=== PATIENT | male | born 1985 | race Caucasian/White ===

== ENCOUNTER 2022-12-21 07:46 | Inpatient (IN) | payer OTHER, MEDICAID, SELFPAY ==
[2022-12-21 07:56] VITALS: BP 129/89; PULSE 118; RESP 26; O2SAT 98; BMI 21.7
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
[2022-12-21] MEDS: diphenhydrAMINE 50 mg/mL SDV 1mL IVP (08:48)
[2022-12-21] MEDS: haloperidol inj 5 mg/mL INJ 1 mL IM (08:48)
[2022-12-21] MEDS: LORazepam 2 mg/mL INJ 1 mL IM (08:49)
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
--- NOTE | 2022-12-21 09:30 | PC.NURSE ---
Pt was sleeping and his O2 dropped to 88% so i placed him on 3lpm NC and it went up to 96%
[2022-12-21 09:34] VITALS: BP 128/74; RESP 18; O2SAT 95
--- NOTE | 2022-12-21 09:43 | PC.NURSE ---
Patient read his 96 Hr rights @5324. No questions at this time. Patient copy left at bedside.
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
[2022-12-21 09:50] LABS: Basophils % 0.4 %; Hemoglobin 12.3 g/dL (11.7-16.6); Mean Corpuscular HGB Conc 32.4 g/dL (30.0-36.0); Mean Corpuscular Hemoglobin 29.7 pg (28.0-34.0); Mean Corpuscular Volume 91.8 fl (80-94); Mean Platelet Volume 8.5 fL (7.4-10.4); Monocytes # 0.7 10^3/uL (0.2-0.9); Monocytes % 8.4 %; Neutrophils # 6.38 10^3/uL (1.8-7.7); Neutrophils % 78.8 %; Nucleated Red Blood Cells % 0 %; Platelet Count 370 10^3/cmm (130-400); Red Blood Count 4.14 10^6/uL (4.1-5.3); Red Cell Distribution Width 12.2 % (12.1-15.1); White Blood Count 8.1 10^3/uL (4.0-10.0)
--- NOTE | 2022-12-21 10:06 | PC.PHAR ---
pt is from [facility]-medications entered are from the pts mar from [facility]-ext med history shows clonazepam 0.5mg bid prn filled 11/16/22 30d/s and propranolol 10mg bid filled 11/16/22 30d/s those medications were not on the pts med list from [facility]
[2022-12-21 10:09] LABS: Alanine Aminotransferase 14 U/L (0-41); Albumin Level 4.4 g/dL (3.5-5.2); Alkaline Phosphatase 77 U/L (40-130); Anion Gap 15.5 (5-19); Aspartate Amino Transferase 25 U/L (0-40); Blood Urea Nitrogen 9 mg/dL (6-20); Calcium 9.4 mg/dL (8.5-10.5); Carbon Dioxide 25 mmol/L (22-29); Chloride 102 mmol/L (98-107); Globulin 2.5 g/dL (1.3-4.6); Glomerular Filtration Rate 94.4 mL/min (90-130); Glucose 108 mg/dL (65-115); Osmolality Calculated 287 mOsm/kg (285-295); Potassium 3.5 mmol/L (3.5-5.1); Sodium 139 mmol/L (136-145); Total Bilirubin 0.3 mg/dL (0.15-1.2); Total Protein 6.9 g/dL (6.6-8.7)
[2022-12-21 10:12] LABS: Acetaminophen < 5.0 ug/mL (10-30); Alcohol Level < 10 mg/dL (0-10); Salicylate < 0.3 mg/dL (3-10)
--- NOTE | 2022-12-21 12:03 | ECG_ITS ---
[facility] Test Date: 2022-12-21 Pat Name: Sajan Overton Department: Room: Gender: Male Photocopier Technician: : 1985 Requested By: Jackeline Buchanan Order Number: [id number] Shelley MD: Wally Gipson M.D. Measurements Intervals Yolyn Rate: 106 P: 66 UT: 165 QRS: 242 QRSD: 106 T: 50 QT: 360 QTc: 480 Interpretive Statements SINUS TACHYCARDIA INDETERMINATE AXIS No previous ECG available for comparison Electronically Signed On 12-21-2022 18:12:19 R DEVELOPER by Wally Gipson M.D. [id number]
--- NOTE | 2022-12-21 12:15 | PC.NURSE ---
Tried to talk to the pt about being able to come out of the restraints, pt refused to talk with me, he just looked around.
[2022-12-21 12:17] LABS: Thyroid Stimulating Hormone 1.88 uIU/mL (0.27-4.20)
[2022-12-21 12:38] LABS: Amphetamines Screen Urine Negative (Negative); Barbiturates Screen Urine Negative (Negative); Benzodiazepines Screen Urine Negative (Negative); Cocaine Screen Urine Negative (Negative); Opiate Screen Urine Negative (Negative); PCP Screen Urine Negative (Negative); THC Screen Urine Negative (Negative)
--- NOTE | 2022-12-21 12:52 | PC.NURSE ---
I spoke with the pt and he states he feels better now and will not cause any trouble, i spoke with and i release pts left arm from the restraint
[2022-12-21 13:01] LABS: SARS Covid-2 Antigen negative (Negative)
--- NOTE | 2022-12-21 13:03 | PC.NURSE ---
Pt removed his right arm on his own, i talked to him told him i would remove them and that he needs to leave them on
--- NOTE | 2022-12-21 13:23 | PC.NURSE ---
pt was removed from all restraints
[2022-12-21 14:00] VITALS: BP 146/92; PULSE 107; RESP 18; TEMP 36.7; O2SAT 96
[2022-12-21 14:11] LABS: Influenza A by IFA Negative (Negative)
[2022-12-21 14:12] LABS: Influenza B by IFA Negative (Negative)
[2022-12-21 14:29] LABS: Add Urine Microscopic? NO; Charge for UA Resulting for Rev
[2022-12-21 14:38] LABS: Bilirubin Urine Neg (Negative); Blood Urine Neg (Negative); Glucose Urine UA Norm (Normal); Ketones Urine Negative (Negative); Leukocyte Esterase Urine Negative (Negative); Nitrate Urine Negative (Negative); Protein Urine Neg (Negative); Sulfosalicylic Acid Urine Negative (Negative); Urine Appearance Clear (CLEAR); Urine Color Light yellow (Yellow); Urobilinogen Urine Neg (Negative); pH Urine 8 (5-7)
[2022-12-21 15:49] VITALS: BP 132/71; PULSE 92; RESP 18; O2SAT 96
[2022-12-21 16:32] VITALS: RESP 18
[2022-12-21] MEDS: nicotine 2 mg Gum BUCCAL (16:44)
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
[2022-12-21] MEDS: ARIPiprazole 10 mg Tablet PO (21:51)
[2022-12-21] MEDS: amitriptyline 25 mg Tablet 100 MG PO (21:51)
[2022-12-21 22:00] VITALS: BP 110/76; PULSE 104; RESP 17; TEMP 36.6; O2SAT 97
[2022-12-21] MEDS: trazodone 50 mg Tablet PO (23:24)
[2022-12-22] MEDS: OLANZapine 5 mg ODT PO (05:43)
[2022-12-22 06:00] VITALS: BP 114/83; PULSE 110; RESP 18; TEMP 37; O2SAT 93
[2022-12-22] MEDS: nicotine 2 mg Gum BUCCAL ×2 (06:07→18:35)
[2022-12-22] MEDS: naltrexone hcl 50 mg Tablet PO (06:08)
[2022-12-22] MEDS: PARoxetine 20 mg Tablet 40 MG PO (06:08)
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
[2022-12-22] MEDS: cetylpyridinium Lozenge 1 EACH MUCOUS MEM ×3 (11:38→21:32)
[2022-12-22 14:00] VITALS: BP 95/64; PULSE 89; RESP 18; TEMP 36.9; O2SAT 98
[2022-12-22] MEDS: hyDROXYzine 25 mg Capsule 50 MG PO (16:52)
[2022-12-22 20:42] VITALS: BP 101/60; PULSE 87; RESP 18; TEMP 36.6; O2SAT 96
[2022-12-22] MEDS: amitriptyline 25 mg Tablet 100 MG PO (21:31)
[2022-12-22] MEDS: trazodone 50 mg Tablet PO (21:32)
[2022-12-22] MEDS: ARIPiprazole 10 mg Tablet PO (21:32)
[2022-12-23] MEDS: acetaminophen 325 mg Tablet 650 MG PO (00:34)
[2022-12-23] MEDS: OLANZapine 5 mg ODT PO (00:35)
[2022-12-23 06:00] VITALS: RESP 16
[2022-12-23] MEDS: naltrexone hcl 50 mg Tablet PO (08:51)
[2022-12-23] MEDS: nicotine 2 mg Gum BUCCAL ×2 (08:51→21:26)
[2022-12-23] MEDS: PARoxetine 20 mg Tablet 40 MG PO (08:51)
[2022-12-23] MEDS: cetylpyridinium Lozenge 1 EACH MUCOUS MEM (08:51)
--- NOTE | 2022-12-23 10:15 | W.PM.NPUPNS ---
Subjective NPU Subjective: Patient presented today reporting that he is tolerating the changes in his Abilify. He is having some confusion about what he is actually taking but we explained that he is on 15 mg p.o. nightly with a possible consideration of increasing that to 20. We continued to discuss his situation at [facility] and it appears that the thought of going back at this at this moment causes some anxiety. We agreed to work on him getting better first and then see where things are from a standpoint of returning to treatment. But we both agreed that continuing his sober living treatment will be critical for his overall success. Mental Status Exam MSE Comments: This is a slender white male in hospital scrubs with limited grooming and eye contact. No abnormal movements except for mild psychomotor retardation. Cooperative with exam in mild distress. Speech was normal rate and volume but slightly decreased. Mood described as okay but anxious at times, affect is congruent and slightly subdued. Thought process, organized. Thought content: patient denies suicidal or homicidal ideation, no delusions noted or reported currently and denies auditory or visual hallucinations. Attention and concentration are intact and memory appeared reliable but none were formally tested. He is alert and oriented times three. Insight and judgment are limited. Impulse control is limited. Vitals/I&O/Wt Last Vital Signs Temp 97.9 F 12/22/22 20:42 Pulse 87 12/22/22 20:42 Resp 16 12/23/22 06:00 BP 101/60 12/22/22 20:42 Pulse Ox 96 12/22/22 20:42 O2 Del Method 12/22/22 06:00 O2 Flow Rate 0 12/23/22 08:00 Data NPU 12/21/22 09:43 12/21/22 09:43 A&P Assessment and plan (1) Aggressive behavior: (2) Psychosis: (3) Involuntary commitment: Plan This is a 37 year old white man with a history of trauma, symtoms of anxiety and depression, methamphetamine and opiate use and genetic loading for mental health and addiction issues who presents with recent confused thought process reporting psychosis/hallucinations/paranoia. 1. Continue current medications. Increased Abilify to 15 mg p.o nightly. 2. Encourage individual, group and milieu therapy 3. Continue q-15 minute check for safety 4. Recommend sober living treatment at the highest level of care to which the patient is willing to commit. Involuntary Hold Information 96 Hour Hold: 96 Hour Involuntary Admission: Yes 96 Hour Hold Ending Date: 12/27/22 96 Hour Hold Ending Time: 08:30 Attestations NPU Medical Necessity Statement*: Inpatient hospitalization is medically necessary and the clinically appropriate intervention at this time. We will monitor medications and make changes as indicated. Likely length of stay is three to five days. Coding Level of Care Code Acute Code for Chg Fwd Diagnoses Aggressive behavior R46.89 Psychosis F29 Involuntary commitment Z04.6
[2022-12-23] MEDS: ARIPiprazole 10 mg Tablet 5 MG PO (11:15)
[2022-12-23 14:00] VITALS: BP 111/78; PULSE 92; RESP 18; TEMP 36.6; O2SAT 96
[2022-12-23] MEDS: haloperidol 5 mg Tablet PO (16:23)
[2022-12-23] MEDS: hyDROXYzine 25 mg Capsule 50 MG PO (16:23)
[2022-12-23] MEDS: haloperidol inj 5 mg/mL INJ 1 mL IM (16:41)
[2022-12-23] MEDS: diphenhydrAMINE 50 mg/mL SDV 1mL IM (16:42)
[2022-12-23] MEDS: LORazepam 2 mg/mL INJ 1 mL IM (16:43)
--- NOTE | 2022-12-23 16:44 | PC.NURSE ---
PATIENT BEGAN WANDERING AND LOOKING INTO OTHER PATIENT'S ROOM APPEARS VERY ANXIOUS; THIS NURSE REDIRECTED PT. SEVERAL TIMES ALONG WITH ASAEL THOMAS. PATIENT CONT. TO BECOME MORE AGITATED; AND PHYSICALLY THREATEN TOWARDS STAFF AND PEERS. PT ALSO BEGAN TRYING TO [facility], PUSHING ON DOORS. SECURITY CALLED AND KARYN Sanon RESPONDED AND WAS A STANDBY WITH NURSE FELICIANO, AND ASAEL THOMAS, NURSE ADMINISTERED PRN HALDOL 5MG IM AND ATIVAN 2MG IM INTO LT. DELTOID;BENADRYL 50MG INTO RT. DELTOID.
[2022-12-23] MEDS: amitriptyline 25 mg Tablet 100 MG PO (20:03)
[2022-12-23] MEDS: ARIPiprazole 10 mg Tablet 15 MG PO (20:03)
[2022-12-23 21:05] VITALS: BP 100/62; PULSE 85; RESP 20; TEMP 36.6; O2SAT 94
[2022-12-24] MEDS: nicotine 2 mg Gum BUCCAL (01:49)
[2022-12-24 05:56] VITALS: BP 101/68; PULSE 108; TEMP 36.4; O2SAT 97
[2022-12-24] MEDS: OLANZapine 5 mg ODT PO ×3 (08:21→21:50)
[2022-12-24] MEDS: naltrexone hcl 50 mg Tablet PO (08:21)
[2022-12-24] MEDS: PARoxetine 20 mg Tablet 40 MG PO (08:21)
--- NOTE | 2022-12-24 13:49 | PC.NURSE ---
Pt came to nurses station with robert yee on his face. He moved back to the smoke doors by room 131, then came fdc to the desk, then back to between the doors. He then came forward to the desk and reached his hand out and touched the counter, then walked backwards to between the smoke doors. He repeated this process at least three more times, then picked up a flexible pen that was on the counter and walked back to his room. He was later in the day room eating his meal. Pt in his room. When staff talked with pt he had a flight of ideas. Pt medicated with zyprexa.
[2022-12-24 14:00] VITALS: BP 134/82; PULSE 102; RESP 18; TEMP 36.6; O2SAT 98
[2022-12-24] MEDS: cetylpyridinium Lozenge 1 EACH MUCOUS MEM (14:10)
--- NOTE | 2022-12-24 14:37 | W.PM.NPUPNS ---
Subjective NPU Subjective: Patient presented today reporting that he had a significant panic attack this morning. He reports he was given medication by the staff/nursing and that after about half an hour he feels things subsided. He does not have any idea why this happened. He denies any issues with the Abilify and was reporting that his psychotic symptoms were abating. Mental Status Exam MSE Comments: This is a slender white male in hospital scrubs with limited grooming and eye contact. No abnormal movements except for mild psychomotor retardation. Cooperative with exam in mild distress. Speech was normal rate and volume but slightly decreased. Mood described as better than earlier, affect is congruent and slightly subdued. Thought process, organized. Thought content: patient denies suicidal or homicidal ideation, no delusions noted or reported currently and denies auditory or visual hallucinations. Attention and concentration are intact and memory appeared reliable but none were formally tested. He is alert and oriented times three. Insight and judgment are limited. Impulse control is limited. Vitals/I&O/Wt Last Vital Signs Temp 97.8 F 12/24/22 14:00 Pulse 125 H 12/24/22 19:44 Resp 18 12/24/22 19:44 BP 141/94 12/24/22 19:44 Pulse Ox 98 12/24/22 19:44 O2 Del Method 12/24/22 05:56 O2 Flow Rate 0 12/24/22 20:00 Weight last 48 hrs Weight 75.807 kg Data NPU 12/21/22 09:43 12/21/22 09:43 A&P Assessment and plan (1) Aggressive behavior: (2) Psychosis: (3) Involuntary commitment: Plan This is a 37 year old white man with a history of trauma, symtoms of anxiety and depression, methamphetamine and opiate use and genetic loading for mental health and addiction issues who presents with recent confused thought process reporting psychosis/hallucinations/paranoia. 1. Continue current medications. Increased Abilify to 15 mg p.o nightly. Consider increase to 20 mg. 2. Encourage individual, group and milieu therapy 3. Continue q-15 minute check for safety 4. Recommend sober living treatment at the highest level of care to which the patient is willing to commit. Involuntary Hold Information 96 Hour Hold: 96 Hour Involuntary Admission: Yes 96 Hour Hold Ending Date: 12/27/22 96 Hour Hold Ending Time: 08:30 Attestations NPU Medical Necessity Statement*: Inpatient hospitalization is medically necessary and the clinically appropriate intervention at this time. We will monitor medications and make changes as indicated. Likely length of stay is three to five days. Coding Level of Care Code Acute Code for Chg Fwd Diagnoses Aggressive behavior R46.89 Psychosis F29 Involuntary commitment Z04.6
[2022-12-24] MEDS: hyDROXYzine 25 mg Capsule 50 MG PO (15:53)
--- NOTE | 2022-12-24 16:01 | PC.NURSE ---
Pt anxious; complaining he has a rash on his hands. Hands are red and raw looking. Pt admits to washing his hands frequently. Pt encouraged to limit this to when it is necessary. Pt acknowledged this. Hand lotion provided. Pt medicated with Vistaril for anxiety.
[2022-12-24 19:44] VITALS: BP 141/94; PULSE 125; RESP 18; O2SAT 98
[2022-12-24] MEDS: ARIPiprazole 10 mg Tablet 15 MG PO (20:32)
[2022-12-24] MEDS: amitriptyline 25 mg Tablet 100 MG PO (20:35)
[2022-12-24] MEDS: trazodone 50 mg Tablet PO (20:58)
--- NOTE | 2022-12-24 21:00 | PC.NURSE ---
PRN trazodone given to promote sleep. Patient cooperative with administration. Continues to be paranoid. Staring at cameras and objects on sweet. Whispers when speaking at times.
--- NOTE | 2022-12-24 21:50 | PC.NURSE ---
Patient continues to make bizarre statements. Stated I'm invoking my 5th amendment rights. Patient went to camera and lights on sweet and stated the same phrase into the objects. Patient then went to mirror in gould at nurse's station and continued to stare into it making bizarre statements. Patient noted to be blocking when staff asked questions. Patient wandered up and down gould and pausing at different times looking blankly. Patient stated loudly several times to different objects that he did not want followed. PRN phillipyprexprakash po offered and taken at that time. Reoriented patient and suggested he go to dayrooom and relax.
--- NOTE | 2022-12-25 03:49 | PC.NURSE ---
Patient has been resting quietly during night. Did get up one time for a snack. No further bizarre behavior noted after zyprexa.
[2022-12-25 06:00] VITALS: BP 138/98; PULSE 112; RESP 18; O2SAT 95
[2022-12-25] MEDS: PARoxetine 20 mg Tablet 40 MG PO (08:56)
[2022-12-25] MEDS: naltrexone hcl 50 mg Tablet PO (08:56)
[2022-12-25] MEDS: hyDROXYzine 25 mg Capsule 50 MG PO (08:57)
--- NOTE | 2022-12-25 09:34 | PC.NURSE ---
when asking patient is he seeing or hearing anything pt squatted down, placing hands over head, mumbling to himself. pt stated having anxiety, pt continues to walk up and down hallway talking to himself, administered vistaril for anxiety.
--- NOTE | 2022-12-25 11:50 | P.NPUPN_ITS ---
Subjective NPU Subjective: Presented today endorsing significant anxiety. He did have a moment where he got fairly upset reporting that the FBI were coming and reporting that he had to protect himself from them. He did later apologize and say that that would not happen again but clearly was distraught in the moment. We discussed the possibility of increasing his Abilify. Mental Status Exam MSE Comments: This is a slender white male in hospital scrubs with limited grooming and eye contact. No abnormal movements except for mild psychomotor retardation. Cooperative with exam in mild to extreme distress. Speech was norm al rate and volume but slightly decreased. Mood described as anxious, affect is congruent and slightly subdued. Thought process, organized. Thought content: patient denies suicidal or homicidal ideation, no delusions reported but clear paranoid and persecutory delusions noted and he denies auditory or visual hallucinations. Attention and concentration are intact and memory appeared reliable but none were formally tested. He is alert and oriented times three. Insight and judgment are limited. Impulse control is impaired. Vitals/I&O/Wt Last Vital Signs Temp 97.8 F 12/24/22 14:00 Pulse 112 H 12/25/22 06:00 Resp 18 12/25/22 06:00 BP 138/98 12/25/22 06:00 Pulse Ox 95 12/25/22 06:00 O2 Del Method 12/24/22 05:56 O2 Flow Rate 0 12/24/22 20:00 12/24/22 12/25/22 12/25/22 22:59 06:59 14:59 Intake Total 500 / 500 Balance 500 / 500 Weight last 48 hrs Weight 75.807 kg Data NPU 12/21/22 09:43 12/21/22 09:43 A&P Assessment and plan (1) Aggressive behavior: (2) Psychosis: (3) Involuntary commitment: Plan This is a 37 year old white man with a history of trauma, symtoms of anxiety and depression, methamphetamine and opiate use and genetic loading for mental health and addiction issues who presents with recent confused thought process reporting psychosis/hallucinations/paranoia. 1. Continue current medications. Increased Abilify to 15 mg p.o nightly. Increase to 20 mg. 2. Encourage individual, group and milieu therapy 3. Continue q-15 minute check for safety 4. Recommend sober living treatment at the highest level of care to which the patient is willing to commit. Involuntary Hold Information 96 Hour Hold: 96 Hour Involuntary Admission: Yes 96 Hour Hold Ending Date: 12/27/22 96 Hour Hold Ending Time: 08:30 Attestations NPU Medical Necessity Statement*: Inpatient hospitalization is medically necessary and the clinically appropriate intervention at this time. We will monitor medications and make changes as indicated. Likely length of stay is three to five days. Coding Level of Care Code Acute Code for g Fwd Diagnoses Aggressive behavior R46.89 Psychosis F29 Involuntary commitment Z04.6
[2022-12-25 14:00] VITALS: BP 94/67; PULSE 104; RESP 16; TEMP 36.6; O2SAT 96
[2022-12-25] MEDS: amitriptyline 25 mg Tablet 100 MG PO (20:02)
[2022-12-25] MEDS: ARIPiprazole 10 mg Tablet 20 MG PO (20:02)
[2022-12-25 21:07] VITALS: BP 114/81; PULSE 104; RESP 18; TEMP 36.8; O2SAT 95
[2022-12-26] MEDS: OLANZapine 5 mg ODT PO ×2 (02:08→20:25)
--- NOTE | 2022-12-26 02:13 | PC.NURSE ---
Patient has been up to nurse's station several times in the past few minutes. Requested to take a shower. Hygiene box, towels and fresh clothes given to patient. Patient returned to nurse's station and made several bizarre statements. Stated I see you all are lip syncing in there. Asked patient what he meant by that and he said I don't know, the world is different. Asked patient if he needed any assistance with anything. Patient stated I can sign that form that was pre-dated now. Told patient I didn't know what form he was talking about and he stated That one where I get treatment to help me to the other side. Patient appears paranoid and will stop talking abruptly or whisper when talking with staff. Patient looking up and down hallways and pacing. Unable to have a full reality based conversation. PRN zyprexa po given as ordered. Patient willing to take medication. Patient returned to room but continues to move abruptly and stare at sweet and windows.
[2022-12-26] MEDS: cetylpyridinium Lozenge 1 EACH MUCOUS MEM ×2 (03:06→16:18)
--- NOTE | 2022-12-26 04:07 | PC.NURSE ---
Patient resting quietly with eyes closed at this time. No further behavior noted. No signs of distress noted.
[2022-12-26 06:00] VITALS: BP 145/89; PULSE 103; RESP 18; TEMP 37; O2SAT 96
[2022-12-26] MEDS: PARoxetine 20 mg Tablet 40 MG PO (09:08)
[2022-12-26] MEDS: naltrexone hcl 50 mg Tablet PO (09:08)
--- NOTE | 2022-12-26 13:58 | W.PM.NPUPNS ---
Subjective NPU Subjective: Patient presented today reporting that he is open to making medication. We discussed his continued erratic behavior and plan to increase his Abilify to 30 mg at bedtime and he understood and agreed to proceed as is documented in this note. We also discussed his likely need for longer stay and us submitting his 21-day paperwork. Mental Status Exam MSE Comments: This is a slender white male in hospital scrubs with limited grooming and eye contact. No abnormal movements except for mild psychomotor retardation. Cooperative with exam in mild to extreme distress. Speech was normal rate and volume but slightly decreased. Mood described as anxious, affect is congruent and slightly subdued. Thought process, organized. Thought content: patient denies suicidal or homicidal ideation, no delusions reported but clear paranoid and persecutory delusions noted and he denies auditory or visual hallucinations. Attention and concentration are intact and memory appeared reliable but none were formally tested. He is alert and oriented times three. Insight and judgment are limited. Impulse control is impaired. Vitals/I&O/Wt Last Vital Signs Temp 98.6 F 12/26/22 06:00 Pulse 103 H 12/26/22 06:00 Resp 18 12/26/22 06:00 BP 145/89 12/26/22 06:00 Pulse Ox 96 12/26/22 06:00 O2 Del Method 12/26/22 06:00 O2 Flow Rate 0 12/25/22 20:00 12/25/22 12/25/22 12/26/22 14:59 22:59 06:59 Intake Total 500 / 500 Balance 500 / 500 Data NPU 12/21/22 09:43 12/21/22 09:43 A&P Assessment and plan (1) Aggressive behavior: (2) Psychosis: (3) Involuntary commitment: Plan This is a 37 year old white man with a history of trauma, symtoms of anxiety and depression, methamphetamine and opiate use and genetic loading for mental health and addiction issues who presents with recent confused thought process reporting psychosis/hallucinations/paranoia. 1. Continue current medications. Increased Abilify to 15 mg p.o nightly. Increased to 20 mg. Increase to 30 mg and consider possibility of Invega. 2. Encourage individual, group and milieu therapy 3. Continue q-15 minute check for safety 4. Recommend sober living treatment at the highest level of care to which the patient is willing to commit. 5. Filed for 21-day hold. Involuntary Hold Information 96 Hour Hold: 96 Hour Involuntary Admission: Yes 96 Hour Hold Ending Date: 12/27/22 96 Hour Hold Ending Time: 08:30 Attestations NPU Medical Necessity Statement*: Inpatient hospitalization is medically necessary and the clinically appropriate intervention at this time. We will monitor medications and make changes as indicated. Likely length of stay is 7-10 days. Coding Level of Care Code Acute Code for g Fwd Diagnoses Aggressive behavior R46.89 Psychosis F29 Involuntary commitment Z04.6
[2022-12-26 14:00] VITALS: BP 104/73; PULSE 101; RESP 15; TEMP 36.6; O2SAT 95
[2022-12-26] MEDS: trazodone 50 mg Tablet PO (20:25)
[2022-12-26] MEDS: amitriptyline 25 mg Tablet 100 MG PO (20:25)
[2022-12-26] MEDS: ARIPiprazole 10 mg Tablet 20 MG PO (20:25)
[2022-12-26 21:53] VITALS: RESP 18
[2022-12-27] MEDS: cetylpyridinium Lozenge 1 EACH MUCOUS MEM (02:31)
[2022-12-27 06:00] VITALS: BP 102/73; PULSE 119; RESP 17; TEMP 36.6; O2SAT 98
[2022-12-27] MEDS: PARoxetine 20 mg Tablet 40 MG PO (09:04)
[2022-12-27] MEDS: naltrexone hcl 50 mg Tablet PO (09:05)
[2022-12-27 14:00] VITALS: BP 108/74; PULSE 104; RESP 18; TEMP 36.6; O2SAT 99
--- NOTE | 2022-12-27 16:10 | P.NPUPN_ITS ---
Subjective NPU Subjective: Patient presented today reporting that he is very open to the medication changes that have been discussed and understands that he is not thinking clearly/having psychosis. He knows he has had episodes of psychosis before but he is unsure if it was ever this significant. We agreed we would mo nitor him on the 30 mg of Abilify for a couple of days and then consider augmentation/switching. He continues to endorse anxiety and paranoia. Mental Status Exam MSE Comments: This is a slender white male in hospital scrubs with limited grooming and eye contact. No abnormal movements except for mild psychomotor retardation. Cooperative with exam in mild to moderate distress. Speech was normal rate and volume but slightly decreased. Mood described as anxious, affect is congruent and slightly subdued. Thought process, organized. Thought content: patient denies suicidal or homicidal ideation, no delusions reported but clear paranoid and persecutory delusions noted and he denies auditory or visual h allucinations. He is often seen mouthing words to himself even when somebody is talking to him. Attention and concentration are intact and memory appeared reliable but none were formally tested. He is alert and oriented times three. Insight and judgment are limited. Impulse control is impaired. Vitals/I&O/Wt Last Vital Signs Temp 97.8 F 12/27/22 14:00 Pulse 104 H 12/27/22 14:00 Resp 18 12/27/22 14:00 BP 108/74 12/27/22 14:00 Pulse Ox 99 12/27/22 14:00 O2 Del Method 12/27/22 06:00 O2 Flow Rate 0 12/27/22 08:00 Data NPU 12/21/22 09:43 12/21/22 09:43 A&P Assessment and plan (1) Aggressive behavior: (2) Psychosis: (3) Involuntary commitment: Plan This is a 37 year old white man with a history of trauma, symtoms of anxiety and depression, methamphetamine and opiate use and genetic loading for mental health and addiction issues who presents with recent confused thought process reporting psychosis/hallucinations/paranoia. 1. Continue current medications. Increased Abilify to 15 mg p.o nightly. Increased to 20 mg. Increase to 30 mg and consider possibility of Invega. 2. Encourage individual, group and milieu therapy 3. Continue q-15 minute check for safety 4. Recommend sober living treatment at the highest level of care to which the patient is willing to commit. 5. On day hold hearing 12/28/2022 at 2:45 PM. Involuntary Hold Information 96 Hour Hold: 96 Hour Involuntary Admission: Yes 96 Hour Hold Ending Date: 12/27/22 96 Hour Hold Ending Time: 08:30 Attestations NPU Medical Necessity Statement*: Inpatient hospitalization is medically necessary and the clinically appropriate intervention at this time. We will monitor medications and make changes as indicated. Likely length of stay is 7-10 days. Coding Level of Care Code Acute Code for Chg Fwd Diagnoses Aggressive behavior R46.89 Psychosis F29 Involuntary commitment Z04.6
[2022-12-27] MEDS: acetaminophen 325 mg Tablet 650 MG PO (17:44)
[2022-12-27 21:10] VITALS: BP 104/68; PULSE 87; RESP 18; TEMP 36.4; O2SAT 95
[2022-12-27] MEDS: amitriptyline 25 mg Tablet 100 MG PO (21:13)
[2022-12-27] MEDS: trazodone 50 mg Tablet PO (21:13)
[2022-12-27] MEDS: ARIPiprazole 30 mg Tablet PO (21:13)
[2022-12-27] MEDS: hyDROXYzine 25 mg Capsule 50 MG PO (21:14)
[2022-12-28] MEDS: acetaminophen 325 mg Tablet 650 MG PO ×3 (03:05→21:17)
[2022-12-28] MEDS: LORazepam 2 mg Tablet PO (03:05)
[2022-12-28] MEDS: calcium carbonate 500 mg Chew Tablet 1000 MG PO (03:06)
--- NOTE | 2022-12-28 03:09 | PC.NURSE ---
Patient has been up all night. He came to Nurses station Requesting Tylenol, tums and something to settle him down. Patient given Ativan 2mg PO, Tylenol 650mg PO and tums 1000mg PO.
[2022-12-28 06:00] VITALS: BP 120/84; PULSE 96; RESP 16; O2SAT 100
[2022-12-28] MEDS: PARoxetine 20 mg Tablet 40 MG PO (09:02)
[2022-12-28] MEDS: naltrexone hcl 50 mg Tablet PO (09:02)
[2022-12-28] MEDS: cetylpyridinium Lozenge 1 EACH MUCOUS MEM (09:15)
[2022-12-28] MEDS: nicotine 21 mg Patch 1 PATCH TRANSDERMA (11:49)
[2022-12-28 14:00] VITALS: BP 112/76; PULSE 108; RESP 18; O2SAT 99
[2022-12-28] MEDS: hyDROXYzine 25 mg Capsule 50 MG PO ×2 (15:35→21:17)
--- NOTE | 2022-12-28 15:40 | W.PM.NPUPNS ---
Subjective NPU Subjective: Patient presented today understanding there was a 21-day hold hearing and wanting to attend. He did attend but did not present any resistance to the recommendation for 21 additional days. We continue to discuss monitoring the increase to 30 mg of Abilify. He denies any side effects and does feel he is having slow improvement in his internal experience. We continue to discuss the plan to augment and/or switch if there is not improvement notable in the next couple of days. He is eating fine and sleeping better. Mental Status Exam MSE Comments: This is a slender white male in hospital scrubs with limited grooming and eye contact. No abnormal movements except for mild psychomotor retardation. Cooperative with exam in mild to moderate distress. Speech was normal rate and volume but slightly decreased. Mood described as anxious, affect is congruent and slightly subdued. Thought process, organized. Thought content: patient denies suicidal or homicidal ideation, no delusions reported but clear paranoid and persecutory delusions noted and he denies auditory or visual hallucinations. He is often seen mouthing words to himself even when somebody is talking to him. Attention and concentration are intact and memory appeared reliable but none were formally tested. He is alert and oriented times three. Insight and judgment are limited. Impulse control is impaired. Vitals/I&O/Wt Last Vital Signs Temp 97.6 F 12/27/22 21:10 Pulse 108 H 12/28/22 14:00 Resp 18 12/28/22 14:00 BP 112/76 12/28/22 14:00 Pulse Ox 99 12/28/22 14:00 O2 Del Method 12/28/22 06:00 O2 Flow Rate 0 12/28/22 08:00 Data NPU 12/21/22 09:43 12/21/22 09:43 A&P Assessment and plan (1) Aggressive behavior: (2) Psychosis: (3) Involuntary commitment: Plan This is a 37 year old white man with a history of trauma, symtoms of anxiety and depression, methamphetamine and opiate use and genetic loading for mental health and addiction issues who presents with recent confused thought process reporting psychosis/hallucinations/paranoia. 1. Continue current medications. Increased Abilify to 15 mg p.o nightly. Increased to 20 mg. Increase to 30 mg and consider possibility of Invega. 2. Encourage individual, group and milieu therapy 3. Continue q-15 minute check for safety 4. Recommend sober living treatment at the highest level of care to which the patient is willing to commit. 5. 21-day hold hearing attended and he has been placed on an extended hold. Involuntary Hold Information 96 Hour Hold: 96 Hour Involuntary Admission: Yes 96 Hour Hold Ending Date: 12/27/22 96 Hour Hold Ending Time: 08:30 Attestations NPU Medical Necessity Statement*: Inpatient hospitalization is medically necessary and the clinically appropriate intervention at this time. We will monitor medications and make changes as indicated. Likely length of stay is 7-10 days. Coding Level of Care Code Acute Code for Chg Fwd Diagnoses Aggressive behavior R46.89 Psychosis F29 Involuntary commitment Z04.6
--- NOTE | 2022-12-28 15:56 | PC.NURSE ---
pt approaches nurses station requesting meds for anxiety and lower back pain, prn APAP, vistril given, pt instructed to lay down in room for the medicine to work, pt verb understanding and went to room to lie down
[2022-12-28 19:57] VITALS: BP 122/66; PULSE 99; RESP 18; O2SAT 95
[2022-12-28] MEDS: amitriptyline 25 mg Tablet 100 MG PO (21:16)
[2022-12-28] MEDS: CLONazepam 1 mg Tablet PO (21:16)
[2022-12-28] MEDS: ARIPiprazole 30 mg Tablet PO (21:16)
[2022-12-28] MEDS: nicotine 2 mg Gum BUCCAL (21:17)
[2022-12-29] MEDS: OLANZapine 5 mg ODT PO (01:45)
[2022-12-29] MEDS: nicotine 2 mg Gum BUCCAL ×2 (01:45→08:37)
[2022-12-29] MEDS: LORazepam 2 mg Tablet PO (01:45)
[2022-12-29 06:00] VITALS: BP 109/73; PULSE 110; RESP 18; O2SAT 95
[2022-12-29] MEDS: PARoxetine 20 mg Tablet 40 MG PO (08:36)
[2022-12-29] MEDS: naltrexone hcl 50 mg Tablet PO (08:37)
[2022-12-29] MEDS: hyDROXYzine 25 mg Capsule 50 MG PO ×2 (08:37→20:26)
[2022-12-29] MEDS: nicotine 21 mg Patch 1 PATCH TRANSDERMA (12:42)
--- NOTE | 2022-12-29 12:55 | W.PM.NPUPNS ---
Subjective NPU Subjective: Patient presented today reporting that he is doing better. He certainly seems more positive and less overtly anxious, however he was walking into a room where I was speaking with another patient seemingly clueless to the etiquette of the situation. Less yelling episodes were reported. He continues to take medication as prescribed. We discussed holding off on any changes as this seems to be some improvement. Mental Status Exam MSE Comments: This is a slender white male in hospital scrubs with limited grooming and eye contact. No abnormal movements except for mild psychomotor retardation. Cooperative with exam in mild to moderate distress. Speech was normal rate and volume but slightly decreased. Mood described as anxious, affect is congruent and slightly subdued and slightly less odd. Thought process, organized. Thought content: patient denies suicidal or homicidal ideation, no delusions reported but clear paranoid and persecutory delusions noted and he denies auditory or visual hallucinations. He is often seen mouthing words to himself even when somebody is talking to him. Attention and concentration are intact and memory appeared reliable but none were formally tested. He is alert and oriented times three. Insight and judgment are limited. Impulse control is impaired. Vitals/I&O/Wt Last Vital Signs Temp 97.6 F 12/27/22 21:10 Pulse 110 H 12/29/22 06:00 Resp 18 12/29/22 06:00 BP 109/73 12/29/22 06:00 Pulse Ox 95 12/29/22 06:00 O2 Del Method 12/28/22 06:00 O2 Flow Rate 0 12/29/22 08:00 Data NPU 12/21/22 09:43 12/21/22 09:43 A&P Assessment and plan (1) Aggressive behavior: (2) Psychosis: (3) Involuntary commitment: Plan This is a 37 year old white man with a history of trauma, symtoms of anxiety and depression, methamphetamine and opiate use and genetic loading for mental health and addiction issues who presents with recent confused thought process reporting psychosis/hallucinations/paranoia. 1. Continue current medications. Increased Abilify to 15 mg p.o nightly. Increased to 20 mg. Increase to 30 mg and consider possibility of Invega. 2. Encourage individual, group and milieu therapy 3. Continue q-15 minute check for safety 4. Recommend sober living treatment at the highest level of care to which the patient is willing to commit. 5. 21-day hold hearing attended and he has been placed on an extended hold. Involuntary Hold Information 96 Hour Hold: 96 Hour Involuntary Admission: Yes 96 Hour Hold Ending Date: 12/27/22 96 Hour Hold Ending Time: 08:30 Attestations NPU Medical Necessity Statement*: Inpatient hospitalization is medically necessary and the clinically appropriate intervention at this time. We will monitor medications and make changes as indicated. Likely length of stay is 7-10 days. Coding Level of Care Code Acute Code for [facility] Fwd Diagnoses Aggressive behavior R46.89 Psychosis F29 Involuntary commitment Z04.6
[2022-12-29 14:00] VITALS: BP 119/82; PULSE 119; RESP 20; TEMP 36.6; O2SAT 91
[2022-12-29] MEDS: acetaminophen 325 mg Tablet 650 MG PO ×2 (15:40→20:30)
[2022-12-29] MEDS: CLONazepam 1 mg Tablet PO (20:26)
[2022-12-29] MEDS: ARIPiprazole 30 mg Tablet PO (20:26)
[2022-12-29] MEDS: ziprasidone hcl 40 mg Capsule PO (20:27)
[2022-12-29] MEDS: calcium carbonate 500 mg Chew Tablet 1000 MG PO (20:28)
[2022-12-29] MEDS: amitriptyline 25 mg Tablet 100 MG PO (20:35)
[2022-12-29 22:00] VITALS: BP 119/84; PULSE 104; RESP 18; O2SAT 100
[2022-12-30 06:00] VITALS: BP 111/70; PULSE 99; RESP 18; TEMP 36.4; O2SAT 96
[2022-12-30] MEDS: naltrexone hcl 50 mg Tablet PO (08:34)
[2022-12-30] MEDS: ziprasidone hcl 40 mg Capsule PO (08:34)
[2022-12-30] MEDS: PARoxetine 20 mg Tablet 40 MG PO (08:34)
[2022-12-30] MEDS: neomycin-poly-bacitracin oint 28 gm 1 APPLIC TOPICAL (08:35)
--- NOTE | 2022-12-30 10:30 | P.NPUPN_ITS ---
Subjective NPU Subjective: Patient presents today having a much worse today than yesterday. With bizarre behaviors including running up and down the halls at times naked. He endorsed having a panic attack but this seems to be having erratic purposeless behaviors. We discussed adding Invega to his medication and consi dering augmentation versus cross titration. Mental Status Exam MSE Comments: This is a slender white male in hospital scrubs with limited grooming and eye contact. No abnormal movements except for significant psychomotor agitation. Cooperative with exam in mild to moderate distress. Speech was normal rate and volume but slightly decreased. Mood described as anxious, affect is congruent, kinetic and bizarre. Thought process, organized. Thought content: patient denies suicidal or homicidal ideation, no delusions reported but clear paranoid and persecutory delusions noted and he denies auditory or visual hallucinations. He is often seen mouthing words to himself even when somebody is talking to him. Attention and concentration are intact and memory appeared reliable but none were formally tested. He is alert and oriented times three. Insight and judgment are limited. Impulse control is impaired. Vitals/I&O/Wt Last Vital Signs Temp 97.5 F L 12/30/22 06:00 Pulse 99 12/30/22 06:00 Resp 18 12/30/22 06:00 BP 111/70 12/30/22 06:00 Pulse Ox 96 12/30/22 06:00 O2 Del Method 12/29/22 22:00 O2 Flow Rate 0 12/30/22 08:00 12/29/22 12/30/22 12/30/22 22:59 06:59 14:59 Intake Total 500 / 500 Balance 500 / 500 Data NPU 12/21/22 09:43 12/21/22 09:43 A&P Assessment and plan (1) Aggressive behavior: (2) Psychosis: (3) Involuntary commitment: Plan This is a 37 year old white man with a history of trauma, symtoms of anxiety and depression, methamphetamine and opiate use and genetic loading for mental health and addiction issues who presents with recent confused thought process reporting psychosis/hallucinations/paranoia. 1. Continue current medications. Increased Abilify to 15 mg p.o nightly. Increased to 20 mg. Increase to 30 mg and consider possibility of Invega. Invega 3 mg now and 6 mg daily and we will consider discontinuing Abilify and may be augmentation with Depakote. But we will start with the Invega. 2. Encourage individual, group and milieu therapy 3. Continue q-15 minute check for safety 4. Recommend sober living treatment at the highest level of care to which the patient is willing to commit. 5. 21-day hold hearing attended and he has been placed on an extended hold. Involuntary Hold Information 96 Hour Hold: 96 Hour Involuntary Admission: Yes 96 Hour Hold Ending Date: 12/27/22 96 Hour Hold Ending Time: 08:30 Attestations NPU Medical Necessity Statement*: Inpatient hospitalization is medically necessary and the clinically appropriate intervention at this time. We will monitor medications and make changes as indicated. Likely length of stay is 7-10 days. Coding Level of Care Code Acute Code for Chg Fwd Diagnoses Aggressive behavior R46.89 Psychosis F29 Involuntary commitment Z04.6
[2022-12-30] MEDS: benztropine 1 mg Tablet PO (10:48)
[2022-12-30] MEDS: hyDROXYzine 25 mg Capsule 50 MG PO ×2 (10:49→22:01)
[2022-12-30] MEDS: nicotine 21 mg Patch 1 PATCH TRANSDERMA (10:51)
[2022-12-30 14:00] VITALS: BP 136/91; PULSE 116; RESP 22; TEMP 36.6; O2SAT 100
[2022-12-30] MEDS: diphenhydrAMINE 50 mg/mL SDV 1mL IM (14:34)
[2022-12-30] MEDS: LORazepam 2 mg/mL INJ 1 mL IM (14:36)
[2022-12-30] MEDS: haloperidol inj 5 mg/mL INJ 1 mL IM (14:38)
--- NOTE | 2022-12-30 14:38 | PC.NURSE ---
Patient ran to nurse'e station wet and naked with blanket wrapped around him; stated someone is trying to get him in his room. Nurse and staff went to room and showed pt. noone is in room and encourage to dry brian and put clothes on. Pt. stated okay nut came down hallway and proceeded to get in the tub yelling and stated someone was in his room. Nurse and stff escorted pt. to his room and showed him no one was in his room. Pt. stated he heard voices in his room; pt. breathing very hard and very anxious; PRN ativan 2mg im; benadryl 50 mg IM; and haldol 5mg IM given in rt. gluteus. Dr. Johnston aware.
[2022-12-30] MEDS: nicotine 2 mg Gum BUCCAL (17:53)
[2022-12-30 20:44] VITALS: BP 113/82; PULSE 109; RESP 20; TEMP 36.6; O2SAT 96
[2022-12-30] MEDS: CLONazepam 1 mg Tablet PO (21:46)
[2022-12-30] MEDS: ARIPiprazole 30 mg Tablet PO (21:47)
[2022-12-30] MEDS: amitriptyline 25 mg Tablet 100 MG PO (21:47)
[2022-12-30] MEDS: haloperidol 5 mg Tablet PO (22:01)
[2022-12-30] MEDS: OLANZapine 5 mg ODT PO (22:01)
[2022-12-30] MEDS: trazodone 50 mg Tablet PO (22:01)
[2022-12-30] MEDS: calcium carbonate 500 mg Chew Tablet 1000 MG PO (22:02)
[2022-12-30] MEDS: nicotine 4 mg lozenge MUCOUS MEM (22:03)
[2022-12-30] MEDS: acetaminophen 325 mg Tablet 650 MG PO (22:03)
[2022-12-30] MEDS: cetylpyridinium Lozenge 1 EACH MUCOUS MEM (22:03)
[2022-12-31 06:00] VITALS: BP 115/83; PULSE 86; RESP 18; O2SAT 100
--- NOTE | 2022-12-31 06:44 | W.PM.NPUPNS ---
Subjective NPU Subjective: Patient presented today denying any issues. We discussed the plan for coadministration of Invega and Abilify with consideration of tapering off the Abilify. This is after discussion of the risks, benefits and alternatives, he understood and agreed to proceed as is documented in this note. He continues to have mercurial behavior but this morning seems to be a bit more OCD. Jeff walks and has been over washing his hands. Consideration for increasing his SSRI was also discussed. Mental Status Exam MSE Comments: This is a slender white male in hospital scrubs with limited grooming and eye contact. No abnormal movements except for significant psychomotor agitation. Cooperative with exam in mild to moderate distress. Behaviors of counting the floor tiles noted. Speech was normal rate and volume but slightly decreased. Mood described as anxious, affect is congruent, kinetic and bizarre. Thought process, organized. Thought content: patient denies suicidal or homicidal ideation, no delusions reported but clear paranoid and persecutory delusions noted and he denies auditory or visual hallucinations. He is often seen mouthing words to himself even when somebody is talking to him. Attention and concentration are intact and memory appeared reliable but none were formally tested. He is alert and oriented times three. Insight and judgment are limited. Impulse control is impaired. Vitals/I&O/Wt Last Vital Signs Temp 97.9 F 12/30/22 20:44 Pulse 86 12/31/22 06:00 Resp 18 12/31/22 06:00 BP 115/83 12/31/22 06:00 Pulse Ox 100 12/31/22 06:00 O2 Del Method 12/30/22 20:44 O2 Flow Rate 0 12/30/22 20:00 12/30/22 12/30/22 12/31/22 14:59 22:59 07:59 Intake Total 500 / 500 Balance 500 / 500 Weight last 48 hrs Weight 73.709 kg Data NPU 12/21/22 09:43 12/21/22 09:43 A&P Assessment and plan (1) Aggressive behavior: (2) Psychosis: (3) Involuntary commitment: Plan This is a 37 year old white man with a history of trauma, symtoms of anxiety and depression, methamphetamine and opiate use and genetic loading for mental health and addiction issues who presents with recent confused thought process reporting psychosis/hallucinations/paranoia. 1. Continue current medications. Increased Abilify to 15 mg p.o nightly. Increased to 20 mg. Increase to 30 mg and consider possibility of Invega. Initiated Invega 6 mg daily and we will consider discontinuing Abilify and may be augmentation with Depakote. But we will start with the Invega. May consider increasing SSRI. 2. Encourage individual, group and milieu therapy 3. Continue q-15 minute check for safety 4. Recommend sober living treatment at the highest level of care to which the patient is willing to commit. 5. 21-day hold hearing attended and he has been placed on an extended hold. Involuntary Hold Information 96 Hour Hold: 96 Hour Involuntary Admission: Yes 96 Hour Hold Ending Date: 12/27/22 96 Hour Hold Ending Time: 08:30 Attestations NPU Medical Necessity Statement*: Inpatient hospitalization is medically necessary and the clinically appropriate intervention at this time. We will monitor medications and make changes as indicated. Likely length of stay is 7-10 days. Coding Level of Care Code Acute Code for [facility] Fwd Diagnoses Aggressive behavior R46.89 Psychosis F29 Involuntary commitment Z04.6
[2022-12-31] MEDS: PARoxetine 20 mg Tablet 40 MG PO (09:20)
[2022-12-31] MEDS: paliperidone ER 6 mg Tablet PO (09:20)
[2022-12-31] MEDS: hyDROXYzine 25 mg Capsule 50 MG PO (09:21)
[2022-12-31] MEDS: naltrexone hcl 50 mg Tablet PO (09:21)
[2022-12-31] MEDS: acetaminophen 325 mg Tablet 650 MG PO (12:22)
[2022-12-31] MEDS: ziprasidone hcl 40 mg Capsule PO (12:23)
[2022-12-31 14:00] VITALS: BP 126/82; PULSE 114; RESP 20; TEMP 36.6; O2SAT 94
[2022-12-31] MEDS: OLANZapine 5 mg ODT PO (14:37)
--- NOTE | 2022-12-31 14:40 | PC.NURSE ---
Pt up pacing the gould, unable to stay in one spot very long. Pt said he was feeling agitated. Talks to himself periodically. When asked if he was hearing voices or having hallucinations, pt denied this. Medicated with zyprexa
[2022-12-31] MEDS: diphenhydrAMINE 50 mg/mL SDV 1mL IM (15:55)
[2022-12-31] MEDS: haloperidol inj 5 mg/mL INJ 1 mL IM (15:55)
--- NOTE | 2022-12-31 16:55 | PC.NURSE ---
Checked on pt. He was just getting up from his bed. Seems tired. Pt encouraged to rest. Pt went to door to room and began asking stgaff about the lock. Staff directed the pt to leave the door open. After staff left the room, the pt got up and closed his outer door. Staff returned to the pt's room accompanied by additional staff and security who happened to be on the unit, opened the door and again redirected the pt to leave his door open. After a brief time, the pt left his room and was walking by the nurses station when he moaned and grabbed his abdomen. He stopped and moaned again, pulled off his shirts, and still holding his abdomen sank to his heels. Pt was assisted up to his feet and to sit on the bench against the wall. He denied abdominal pain, saying his action was a comforting measure for him. He said he felt hot. Pt was assisted back into his scrub top and his vital signs checked. 133/87, 97.6f, 116 pulse, and 99% O2 sat. Pt was assisted back to his room by SIGNAL CONSTRUCTOR and encouraged to rest. Pt sitting quietly on his bed talking to himself. food beverage supervisor notified of pt's behaviors and potential need for 1:1 staff. Will monitor
[2022-12-31 22:00] VITALS: BP 127/90; PULSE 86; RESP 18; TEMP 36.4; O2SAT 98
[2022-12-31] MEDS: nicotine 4 mg lozenge MUCOUS MEM (22:09)
[2023-01-01 06:00] VITALS: BP 105/62; PULSE 89; RESP 17; TEMP 36.7; O2SAT 98
[2023-01-01] MEDS: paliperidone ER 6 mg Tablet PO (08:50)
[2023-01-01] MEDS: naltrexone hcl 50 mg Tablet PO (08:50)
[2023-01-01] MEDS: PARoxetine 20 mg Tablet 40 MG PO (08:50)
[2023-01-01] MEDS: acetaminophen 325 mg Tablet 650 MG PO (10:58)
[2023-01-01 14:00] VITALS: BP 122/91; PULSE 101; RESP 17; TEMP 36.3; O2SAT 98
--- NOTE | 2023-01-01 14:47 | W.PM.NPUPNS ---
Subjective NPU Subjective: The patient presented today reporting having minimal problems here on the unit but being unable to describe the details for which he was admitted into this place. He continued to pace the gould way often speaking to himself and often stopping his conversation and the middle of a sentence as if he was preoccupied by another conversation. He continued to engage in spending an excessive amount of time washing his hands. He reported that he continue to take his medications as prescribed. He had continued to have minimal engagement with other peers or staff in groups. Mental Status Exam MSE Comments: This is a slender white male in hospital scrubs with limited grooming and eye contact. No abnormal movements except for some hyperkinesis. He was cooperative with exam in mild to moderate distress. Behaviors of counting the floor tiles were appreciated. Speech was diminished in rate and volume but slightly decreased. Mood described as okay. His affect is incongruent, and bizarre. Thought process showed evidence of derailment. Thought content: patient denies suicidal or homicidal ideation, no delusions reported but he did appear to be responding to internal stimuli and there was clear evidence of paranoia. He is often seen mouthing words to himself even when somebody is talking to him. Attention and concentration are intact and memory appeared reliable but none were formally tested. He is alert and oriented times three. Insight and judgment are limited. Impulse control is impaired. Vitals/I&O/Wt Last Vital Signs Temp 98.0 F 01/01/23 06:00 Pulse 89 01/01/23 06:00 Resp 17 01/01/23 06:00 BP 105/62 01/01/23 06:00 Pulse Ox 98 01/01/23 06:00 O2 Del Method 01/01/23 06:00 O2 Flow Rate 0 01/01/23 08:00 Weight last 48 hrs Weight 73.709 kg Data NPU 12/21/22 09:43 12/21/22 09:43 A&P Assessment and plan (1) Aggressive behavior: (2) Psychosis: (3) Involuntary commitment: Plan This is a 37 year old white man with a history of trauma, symtoms of anxiety and depression, methamphetamine and opiate use and genetic loading for mental health and addiction issues who presents with recent confused thought process reporting psychosis/hallucinations/paranoia. 1. Invega 6mg daily, taper abilify to 20mg daily. 2. Encourage individual, group and milieu therapy 3. Continue q-15 minute check for safety 4. Recommend sober living treatment at the highest level of care to which the patient is willing to commit. 5. 21-day hold hearing attended and he has been placed on an extended hold. Involuntary Hold Information 96 Hour Hold: 96 Hour Involuntary Admission: Yes 96 Hour Hold Ending Date: 12/27/22 96 Hour Hold Ending Time: 08:30 Attestations NPU Medical Necessity Statement*: Inpatient hospitalization is medically necessary and the clinically appropriate intervention at this time. We will monitor medications and make changes as indicated. Likely length of stay is 7-10 days. Coding Level of Care Code Acute Code for Chg Fwd Diagnoses Aggressive behavior R46.89 Psychosis F29 Involuntary commitment Z04.6
[2023-01-01] MEDS: amitriptyline 25 mg Tablet 100 MG PO (20:12)
[2023-01-01] MEDS: ARIPiprazole 10 mg Tablet 20 MG PO (20:16)
[2023-01-01] MEDS: CLONazepam 1 mg Tablet PO (20:17)
[2023-01-01 20:59] VITALS: BP 126/87; PULSE 107; RESP 18; TEMP 36.4; O2SAT 95
[2023-01-02] MEDS: nicotine 4 mg lozenge MUCOUS MEM ×3 (02:55→22:53)
[2023-01-02] MEDS: calcium carbonate 500 mg Chew Tablet 1000 MG PO (03:16)
[2023-01-02 06:00] VITALS: BP 125/83; PULSE 108; RESP 17; TEMP 36.4; O2SAT 96
[2023-01-02] MEDS: paliperidone ER 6 mg Tablet PO (08:08)
[2023-01-02] MEDS: PARoxetine 20 mg Tablet 40 MG PO (08:08)
[2023-01-02] MEDS: naltrexone hcl 50 mg Tablet PO (08:08)
[2023-01-02 14:00] VITALS: BP 124/84; PULSE 107; RESP 16; O2SAT 98
[2023-01-02] MEDS: paliperidone ER 3 mg Tablet PO (17:01)
--- NOTE | 2023-01-02 17:36 | W.PM.NPUPNS ---
Subjective NPU Subjective: Patient is a 89-oy[age]-year-old male admitted with psychotic symptoms and continued decompensation after being in hospitalized for inpatient substance abuse rehabilitation. Patient appeared confused on the milieu. He had isolated himself and did not appear to be engaging in any ability to manage self-care. He had been redirectable but appeared to be confused and often engaged in odd bizarre behavior including attempting to count something on the ceiling and having an extended conversation that appeared to be internal preoccupation. He appeared to have struggles with engaging with his peers. Notes the patient had been seen pacing the gould and had difficulties with sleeping with reports of 2 to 3 hours of sleep total over the past 24 hours. Mental Status Exam MSE Comments: This is a slender white male in hospital scrubs with limited grooming, maladorous, and having fleeting eye contact. No abnormal movements appreciated. He was minimally cooperative with exam and remained in moderate distress. Behaviors including staring at the ceiling while counting something unspecified was noted. Speech was diminished in rate and volume. Mood was not endorsed. His affect is bizarre and subdued. Thought process showed evidence of derailment. Thought content: patient denies suicidal or homicidal ideation, no delusions reported but he did appear to be responding to internal stimuli and there was clear evidence of paranoia. He is often seen mouthing words to himself even when somebody is talking to him. Attention and concentration are intact and memory appeared reliable but none were formally tested. He was unable to provide date or day of week today. Insight and judgment are limited. Impulse control is impaired. Vitals/I&O/Wt Last Vital Signs Temp 97.6 F 01/02/23 06:00 Pulse 107 H 01/02/23 14:00 Resp 16 01/02/23 14:00 BP 124/84 01/02/23 14:00 Pulse Ox 98 01/02/23 14:00 O2 Del Method 01/02/23 06:00 O2 Flow Rate 0 01/02/23 08:00 Data NPU 12/21/22 09:43 12/21/22 09:43 A&P Assessment and plan (1) Aggressive behavior: (2) Psychosis: (3) Involuntary commitment: Plan This is a 37 year old white man with a history of trauma, symtoms of anxiety and depression, methamphetamine and opiate use and genetic loading for mental health and addiction issues who presents with recent confused thought process reporting psychosis/hallucinations/paranoia. 1. Increase Invega 9mg daily, decrease abilify 10mg daily, decrease amitryptiline 50mg at night. Increase klonopin 1.5mg at night. 2. Encourage individual, group and milieu therapy 3. Continue q-15 minute check for safety 4. Recommend sober living treatment at the highest level of care to which the patient is willing to commit. 5. 21-day hold hearing attended and he has been placed on an extended hold. Involuntary Hold Information 96 Hour Hold: 96 Hour Involuntary Admission: Yes 96 Hour Hold Ending Date: 12/27/22 96 Hour Hold Ending Time: 08:30 Attestations NPU Medical Necessity Statement*: Inpatient hospitalization is medically necessary and the clinically appropriate intervention at this time. We will monitor medications and make changes as indicated. Likely length of stay is 7-10 days. Coding Level of Care Code Acute Code for g Fwd Diagnoses Aggressive behavior R46.89 Psychosis F29 Involuntary commitment Z04.6
[2023-01-02] MEDS: amitriptyline 25 mg Tablet 50 MG PO (19:59)
[2023-01-02] MEDS: ARIPiprazole 10 mg Tablet PO (19:59)
[2023-01-02] MEDS: CLONazepam 1 mg Tablet 1.5 MG PO (19:59)
[2023-01-02 22:00] VITALS: BP 99/68; PULSE 118; RESP 18; TEMP 36.2; O2SAT 94
--- NOTE | 2023-01-02 22:50 | PC.NURSE ---
Patient given trazodone to promote sleep. Encouraged patient to go to room and lay down and relax. Patient did go to room.
[2023-01-02] MEDS: trazodone 50 mg Tablet PO (22:53)
[2023-01-03] MEDS: nicotine 4 mg lozenge MUCOUS MEM (03:54)
--- NOTE | 2023-01-03 04:25 | PC.NURSE ---
pt wandered up the hallway and started to stare into the other pts rooms. pt was redirected and told that it was inappropriate to do this and pt stated I need to wake my friends up since I am awake . Pt then told this MANAGER FILM that he had a secret and then stated We are all apart of the [employer]ores gang . this MANAGER FILM then told pt that there was no such thing and offered pt something to help him go back to sleep, pt refused all medications offered. pt was educated on why sleeping is important and that pt had PRNs to first helper his sleep. pt still refused after education. pt then asked to shower. pt was provided with supplies to do so.
[2023-01-03] MEDS: naltrexone hcl 50 mg Tablet PO (08:47)
[2023-01-03] MEDS: PARoxetine 20 mg Tablet 40 MG PO (08:47)
[2023-01-03] MEDS: paliperidone ER 6 mg Tablet 9 MG PO (08:47)
[2023-01-03 14:00] VITALS: BP 115/78; PULSE 117; RESP 18; TEMP 36.6; O2SAT 99
--- NOTE | 2023-01-03 17:16 | W.PM.NPUPNS ---
Subjective NPU Subjective: Patient is a 60-hurb[age]-year-old male admitted with psychotic symptoms and continued decompensation after being in hospitalized for inpatient substance abuse rehabilitation. The patient continued to isolate himself on the milieu but showed some level of desire to engage in self-care including taking a bath. The patient had continue to eat and appeared to have a conversation with his father that he described as better. The patient remained quite paranoid as he literally stopped speaking regarding interactions and appeared confused about who the business writer of this note was and why he was asking these questions. He had been engaging in less bizarre and less compulsive behavior noted on the unit. He completely minimized any of these problems or concerns on interview. Mental Status Exam MSE Comments: This is a slender white male in hospital scrubs,maladorous with fleeting eye contact. No abnormal involuntary motor movements appreciated. He was minimally cooperative with exam and remained in significant distress. no compulsions were noted. Speech was normal initially in rate and volume followed by a complete absence of speech during interview. Mood was endorsed as fine. His affect is bizarre and subdued. Thought process was superficial but appeared to derail during the interview. Thought content: patient denies suicidal or homicidal ideation, the patient remained actively paranoid. There was clear evidence of thought blocking or a desire to not speak further when questioned. He was seen once again mouthing words to himself even when no one was speaking to him. Attention and concentration are intact and memory appeared reliable but none were formally tested. He was unable to provide date or day of week today. Insight and judgment are limited. Impulse control is impaired. Vitals/I&O/Wt Last Vital Signs Temp 98 F 01/03/23 14:00 Pulse 117 H 01/03/23 14:00 Resp 18 01/03/23 14:00 BP 115/78 01/03/23 14:00 Pulse Ox 99 01/03/23 14:00 O2 Del Method 01/02/23 22:00 O2 Flow Rate 0 01/03/23 08:00 Data NPU 12/21/22 09:43 12/21/22 09:43 A&P Assessment and plan (1) Aggressive behavior: (2) Psychosis: (3) Involuntary commitment: Plan This is a 37 year old white man with a history of trauma, symtoms of anxiety and depression, methamphetamine and opiate use and genetic loading for mental health and addiction issues who presents with recent confused thought process reporting psychosis/hallucinations/paranoia. 1. Continue Invega 9mg daily, Continue abilify 10mg daily. Amitryptiline 50mg at night. Continue klonopin 1.5mg at night. 2. Encourage individual, group and milieu therapy 3. Continue q-15 minute check for safety 4. Recommend sober living treatment at the highest level of care to which the patient is willing to commit. 5. 21-day hold hearing attended and he has been placed on an extended hold. Involuntary Hold Information 96 Hour Hold: 96 Hour Involuntary Admission: Yes 96 Hour Hold Ending Date: 12/27/22 96 Hour Hold Ending Time: 08:30 Attestations NPU Medical Necessity Statement*: Inpatient hospitalization is medically necessary and the clinically appropriate intervention at this time. We will monitor medications and make changes as indicated. Likely length of stay is 7-10 days. Coding Level of Care Code Acute Code for g Fwd Diagnoses Aggressive behavior R46.89 Psychosis F29 Involuntary commitment Z04.6
[2023-01-03] MEDS: calcium carbonate 500 mg Chew Tablet 1000 MG PO (18:04)
[2023-01-03] MEDS: amitriptyline 25 mg Tablet 50 MG PO (19:49)
[2023-01-03] MEDS: ARIPiprazole 10 mg Tablet PO (19:49)
[2023-01-03] MEDS: trazodone 50 mg Tablet PO (19:50)
--- NOTE | 2023-01-03 19:50 | PC.NURSE ---
Patient requesting prn for sleep. Trazodone given as ordered. Suggested patient try and go to room and lay down so he could relax. Patient did go to room.
[2023-01-03] MEDS: CLONazepam 1 mg Tablet 1.5 MG PO (19:51)
[2023-01-03 22:00] VITALS: BP 116/77; PULSE 102; RESP 15; O2SAT 97
[2023-01-04 06:00] VITALS: BP 109/78; PULSE 115; RESP 17; TEMP 37; O2SAT 97
[2023-01-04] MEDS: paliperidone ER 6 mg Tablet 9 MG PO (08:44)
[2023-01-04] MEDS: hyDROXYzine 25 mg Capsule 50 MG PO (08:45)
[2023-01-04] MEDS: PARoxetine 20 mg Tablet 40 MG PO (08:45)
[2023-01-04] MEDS: naltrexone hcl 50 mg Tablet PO (08:45)
[2023-01-04 14:00] VITALS: BP 112/76; PULSE 97; RESP 20; TEMP 36.7; O2SAT 99
--- NOTE | 2023-01-04 16:51 | W.PM.NPUPNS ---
Subjective NPU Subjective: Patient is a 45-fmny-ebj-year-old male admitted with psychotic symptoms and continued decompensation after being in hospitalized for inpatient substance abuse rehabilitation. Patient continued to show evidence of bizarre behavior on the unit. As he appeared to be pacing through the halls and talking to himself. He would engage in conversation and simply stop midstream as he appeared distracted. He had continued to spend excessive amount of time in the bathroom and appeared to be rubbing his hands raw. He did not endorse any problems with contamination but continued to appear to spend an excessive amount of time washing his hands. Mental Status Exam MSE Comments: This is a slender white male in hospital scrubs,maladorous, poor hygiene with fleeting eye contact. No abnormal involuntary motor movements appreciated. He was minimally cooperative with exam and remained in significant distress. No compulsions were noted. Speech was diminished in regards to rate, with variable volume and normal prosody. Mood was endorsed as good. His affect is bizarre and subdued. Thought process was linear but then derailed. Thought content: patient denies suicidal or homicidal ideation, the patient remained actively paranoid. There was clear evidence of thought blocking or a desire to not speak further when questioned. He was seen once again mouthing words to himself even when no one was speaking to him. Attention and concentration are intact and memory appeared reliable but none were formally tested. He was unable to provide date or day of week today. Insight and judgment are limited. Impulse control is impaired. Vitals/I&O/Wt Last Vital Signs Temp 98.0 F 01/04/23 14:00 Pulse 97 01/04/23 14:00 Resp 20 H 01/04/23 14:00 BP 112/76 01/04/23 14:00 Pulse Ox 99 01/04/23 14:00 O2 Del Method 01/04/23 06:00 O2 Flow Rate 0 01/03/23 20:00 Data NPU 12/21/22 09:43 12/21/22 09:43 A&P Assessment and plan (1) Aggressive behavior: (2) Psychosis: (3) Involuntary commitment: Plan This is a 37 year old white man with a history of trauma, symtoms of anxiety and depression, methamphetamine and opiate use and genetic loading for mental health and addiction issues who presents with recent confused thought process reporting psychosis/hallucinations/paranoia. 1. Continue Invega 9mg daily, Decrease Abilify 5mg daily, Amitryptiline 50mg at night. Continue klonopin 1.5mg at night. Invega IM 234mg to be ordered once abilify discontinued. 2. Encourage individual, group and milieu therapy 3. Continue q-15 minute check for safety 4. Recommend sober living treatment at the highest level of care to which the patient is willing to commit. 5. 21-day hold hearing attended and he has been placed on an extended hold. Involuntary Hold Information 96 Hour Hold: 96 Hour Involuntary Admission: Yes 96 Hour Hold Ending Date: 12/27/22 96 Hour Hold Ending Time: 08:30 Attestations NPU Medical Necessity Statement*: Inpatient hospitalization is medically necessary and the clinically appropriate intervention at this time. We will monitor medications and make changes as indicated. Likely length of stay is 7-10 days. Coding Level of Care Code Acute Code for g Fwd Diagnoses Aggressive behavior R46.89 Psychosis F29 Involuntary commitment Z04.6
[2023-01-04 22:00] VITALS: RESP 17
[2023-01-04] MEDS: ARIPiprazole 10 mg Tablet 5 MG PO (22:11)
[2023-01-04] MEDS: amitriptyline 25 mg Tablet 50 MG PO (22:11)
[2023-01-04] MEDS: trazodone 50 mg Tablet PO (22:13)
[2023-01-04] MEDS: CLONazepam 1 mg Tablet 1.5 MG PO (22:13)
--- NOTE | 2023-01-04 22:15 | PC.NURSE ---
PRN trazodone given as ordered per pt request for sleep.
--- NOTE | 2023-01-04 22:37 | PC.NURSE ---
PRN trazodone given at 2213 resulting in pt resting comfortably in bed w/eyes closed. no distress noted.
[2023-01-05 06:00] VITALS: BP 113/79; PULSE 116; RESP 19; TEMP 36.4; O2SAT 98
[2023-01-05] MEDS: paliperidone ER 6 mg Tablet 9 MG PO (09:21)
[2023-01-05] MEDS: PARoxetine 20 mg Tablet 40 MG PO (09:22)
[2023-01-05] MEDS: naltrexone hcl 50 mg Tablet PO (09:22)
[2023-01-05 14:00] VITALS: BP 117/84; PULSE 113; RESP 16; TEMP 36.7; O2SAT 100
[2023-01-05] MEDS: nicotine 21 mg Patch 1 PATCH TRANSDERMA (16:14)
--- NOTE | 2023-01-05 20:23 | P.NPUPN_ITS ---
Subjective NPU Subjective: Patient is a 59-bf[age]-ais-year-old male admitted with psychotic symptoms and continued decompensation after being in hospitalized for inpatient substance abuse rehabilitation. Patient continued to show evidence of bizarre behavior on the unit. Patient continued to wash his hands and spend excessive amounts of time in the bathroom rubbing his hands to the point of being. He denied any clear obsessions or compulsions. He continued to spend time even during the interview with counting something off the ceiling. He stated that he was working on a math problem and stated having extensive experience with looking into higher verdugo of mathematics. Patient had reported no side effects currently from his medications. Patient was unwilling to describe previous details regarding his entrance into a drug rehab facility,, [facility] prior to admission at the [facility]. Patient has been minimally engaged in with limited engagement with staff and his peers. Mental Status Exam MSE Comments: This is a slender white male in hospital scrubs,improved hygiene with fleeting eye contact. No abnormal involuntary motor movements appreciated. He was minimally cooperative with exam and remained in significant distress. No compulsions were noted. Speech was diminished in regards to rate, with v ariable volume and normal prosody. Mood was endorsed as okay. His affect is bizarre and subdued. Thought process was linear but then derailed. Thought content: patient denies suicidal or homicidal ideation, the patient remained actively paranoid. There was clear evidence of thought blocking or a desire to not speak further when questioned. He was seen once again mouthing words to himself at almost a whisper suddenly during the interview. Attention and concentration are intact and memory appeared reliable but none were formally tested. Insight and judgment are limited. Impulse control is impaired. Vitals/I&O/Wt Last Vital Signs Temp 98.1 F 01/05/23 14:00 Pulse 113 H 01/05/23 14:00 Resp 16 01/05/23 14:00 BP 117/84 01/05/23 14:00 Pulse Ox 100 01/05/23 14:00 O2 Del Method 01/05/23 14:00 O2 Flow Rate 0 01/04/23 20:00 Data NPU 12/21/22 09:43 12/21/22 09:43 A&P Assessment and plan (1) Aggressive behavior: (2) Psychosis: (3) Involuntary commitment: Plan This is a 37 year old white man with a history of trauma, symtoms of anxiety and depression, methamphetamine and opiate use and genetic loading for mental health and addiction issues who presents with recent confused thought process reporting psychosis/hallucinations/paranoia. 1. Continue Invega 9mg daily, Decrease Abilify 5mg daily, Discontinue Amitryptiline, Continue klonopin 1.5mg at night. Invega IM 234mg to be ordered once abilify discontinued. 2. Encourage individual, group and milieu therapy 3. Continue q-15 minute check for safety 4. Recommend sober living treatment at the highest level of care to which the patient is willing to commit. 5. 21-day hold hearing attended and he has been placed on an extended hold. Involuntary Hold Information 96 Hour Hold: 96 Hour Involuntary Admission: Yes 96 Hour Hold Ending Date: 12/27/22 96 Hour Hold Ending Time: 08:30 Attestations NPU Medical Necessity Statement*: Inpatient hospitalization is medically necessary and the clinically appropriate intervention at this time. We will monitor medications and make changes as indicated. Likely length of stay is 7-10 days. Coding Level of Care Code Acute Code for Chg Fwd Diagnoses Aggressive behavior R46.89 Psychosis F29 Involuntary commitment Z04.6
[2023-01-05] MEDS: CLONazepam 1 mg Tablet 1.5 MG PO (21:08)
[2023-01-05] MEDS: ARIPiprazole 10 mg Tablet 5 MG PO (21:09)
[2023-01-05] MEDS: trazodone 50 mg Tablet PO (21:09)
[2023-01-05] MEDS: amitriptyline 25 mg Tablet 50 MG PO (21:09)
[2023-01-05] MEDS: hyDROXYzine 25 mg Capsule 50 MG PO (21:10)
[2023-01-05 22:00] VITALS: BP 125/85; PULSE 119; RESP 16; TEMP 36.7; O2SAT 97
[2023-01-05] MEDS: acetaminophen 325 mg Tablet 650 MG PO (22:15)
[2023-01-05] MEDS: calcium carbonate 500 mg Chew Tablet 1000 MG PO (22:28)
[2023-01-06 06:00] VITALS: BP 110/76; PULSE 104; RESP 16; TEMP 36.4; O2SAT 99
[2023-01-06] MEDS: paliperidone ER 3 mg Tablet 9 MG PO (08:54)
[2023-01-06] MEDS: PARoxetine 20 mg Tablet 40 MG PO (08:55)
[2023-01-06] MEDS: naltrexone hcl 50 mg Tablet PO (08:55)
[2023-01-06] MEDS: nicotine 21 mg Patch 1 PATCH TRANSDERMA (13:18)
[2023-01-06 14:00] VITALS: RESP 16
--- NOTE | 2023-01-06 20:14 | W.PM.NPUPNS ---
Subjective NPU Subjective: Patient is a 76-alnf-pia-year-old male admitted with psychotic symptoms and continued decompensation after being in hospitalized for inpatient substance abuse rehabilitation. Patient continued to isolate himself on the milieu. He reported no side effects from his medication. He had continued to minimize excessive amount of time spent in the bathroom and continued to show evidence of rubbing his hands until they were red. he denies any mood sympto. He still remains somewhat guarded in regards to his prior history of treatment and continued to have evidence of some periods where he would simply stop speaking middle of the interview and began whispering. Mental Status Exam MSE Comments: This is a slender white male in hospital scrubs,improved hygiene with fleeting eye contact. No abnormal involuntary motor movements appreciated. He was minimally cooperative with exam and remained in significant distress. No compulsions were noted. Speech was more productive today with variable volume and normal prosody. Mood was endorsed as okay. His affect is bizarre and subdued. Thought process continued to derail at times. Thought content: patient denies suicidal or homicidal ideation, the patient remained actively paranoid. There was clear evidence of thought blocking or a desire to not speak further when questioned regarding his past treatment. He was seen once again mouthing words to himself at almost a whisper suddenly during the interview. Attention and concentration are intact and memory appeared reliable but none were formally tested. Insight and judgment are limited. Impulse control is impaired. Vitals/I&O/Wt Last Vital Signs Temp 97.6 F 01/06/23 06:00 Pulse 104 H 01/06/23 06:00 Resp 16 01/06/23 14:00 BP 110/76 01/06/23 06:00 Pulse Ox 99 01/06/23 06:00 O2 Del Method 01/06/23 06:00 O2 Flow Rate 0 01/05/23 20:00 Data NPU 12/21/22 09:43 12/21/22 09:43 A&P Assessment and plan (1) Aggressive behavior: (2) Psychosis: (3) Involuntary commitment: Plan This is a 37 year old white man with a history of trauma, symtoms of anxiety and depression, methamphetamine and opiate use and genetic loading for mental health and addiction issues who presents with recent confused thought process reporting psychosis/hallucinations/paranoia. 1. Continue Invega 9mg daily, D/c Abilify. decrease amitryptiline to 25mg at night, increase paxil to 50mg at night. Continue klonopin 1.5mg at night. Invega 234mg to be ordered once abilify discontinued. 2. Encourage individual, group and milieu therapy 3. Continue q-15 minute check for safety 4. Recommend sober living treatment at the highest level of care to which the patient is willing to commit. 5. 21-day hold hearing attended and he has been placed on an extended hold. Involuntary Hold Information 96 Hour Hold: 96 Hour Involuntary Admission: Yes 96 Hour Hold Ending Date: 12/27/22 96 Hour Hold Ending Time: 08:30 Attestations NPU Medical Necessity Statement*: Inpatient hospitalization is medically necessary and the clinically appropriate intervention at this time. We will monitor medications and make changes as indicated. Likely length of stay is 7-10 days. Coding Level of Care Code Acute Code for Chg Fwd Diagnoses Aggressive behavior R46.89 Psychosis F29 Involuntary commitment Z04.6
[2023-01-06] MEDS: amitriptyline 25 mg Tablet PO (21:44)
[2023-01-06] MEDS: CLONazepam 1 mg Tablet 1.5 MG PO (21:44)
[2023-01-06] MEDS: ziprasidone hcl 40 mg Capsule PO (21:45)
[2023-01-06] MEDS: nicotine 4 mg lozenge MUCOUS MEM (21:45)
[2023-01-06 22:00] VITALS: BP 118/82; PULSE 107; RESP 18; TEMP 36.4; O2SAT 92
[2023-01-07 06:00] VITALS: RESP 18; BMI 22.0
[2023-01-07] MEDS: paliperidone ER 3 mg Tablet 9 MG PO (08:49)
[2023-01-07] MEDS: PARoxetine 20 mg Tablet 50 MG PO (08:49)
[2023-01-07] MEDS: nicotine 21 mg Patch 1 PATCH TRANSDERMA (08:49)
[2023-01-07] MEDS: naltrexone hcl 50 mg Tablet PO (08:50)
[2023-01-07 14:00] VITALS: BP 127/80; PULSE 97; RESP 20; TEMP 36.3; O2SAT 100
--- NOTE | 2023-01-07 16:45 | W.PM.NPUPNS ---
Subjective NPU Subjective: Patient is a 20-qpqi-uzk-year-old male admitted with psychotic symptoms and continued decompensation after being in hospitalized for inpatient substance abuse rehabilitation. Patient had denied any thoughts of hurting himself or others. He had been isolative on the milieu but stated that he was feeling better. He reports that he had a visit from his parents yesterday and felt that he was making progress. He had reported that his thoughts were less distracting. He had continued to minimize the problems of rubbing his hands till they were read as he stated that it must be due to salt in the water. He reported no thoughts of being contaminated nor did he endorse feeling paranoid. He did continue at times to be engaged in self talk while walking on the unit. Mental Status Exam MSE Comments: This is a slender white male in hospital scrubs,improved hygiene with fleeting eye contact. No abnormal involuntary motor movements appreciated. He was cooperative with exam and remained in significant distress. No compulsions were noted. Speech was more productive today with variable volume and normal prosody. Mood was endorsed as okay. His affect is bizarre and subdued. Thought process appeared more linear today. Thought content: patient denies suicidal or homicidal ideation, the patient showed some evidence of paranoia. There was less thought blocking noted. There was no presence of periods of suddenly lowering his volume and speaking to himself. Attention and concentration are intact and memory appeared reliable but none were formally tested. Insight and judgment are limited. Impulse control is impaired. Vitals/I&O/Wt Last Vital Signs Temp 97.4 F L 01/07/23 14:00 Pulse 97 01/07/23 14:00 Resp 20 H 01/07/23 14:00 BP 127/80 01/07/23 14:00 Pulse Ox 100 01/07/23 14:00 O2 Del Method 01/06/23 06:00 O2 Flow Rate 0 01/07/23 08:00 Weight last 48 hrs Weight 76.113 kg Weight 73.709 kg Data NPU 12/21/22 09:43 12/21/22 09:43 A&P Assessment and plan (1) Aggressive behavior: (2) Psychosis: (3) Involuntary commitment: Plan This is a 37 year old white man with a history of trauma, symtoms of anxiety and depression, methamphetamine and opiate use and genetic loading for mental health and addiction issues who presents with recent confused thought process reporting psychosis/hallucinations/paranoia. 1. Continue Invega 9mg daily, continue paxil at 50mg at night. Continue klonopin 1.5mg at night. Invega 234mg to be ordered once abilify discontinued. 2. Encourage individual, group and milieu therapy 3. Continue q-15 minute check for safety 4. Recommend sober living treatment at the highest level of care to which the patient is willing to commit. 5. 21-day hold hearing attended and he has been placed on an extended hold. Involuntary Hold Information 96 Hour Hold: 96 Hour Involuntary Admission: Yes 96 Hour Hold Ending Date: 12/27/22 96 Hour Hold Ending Time: 08:30 Attestations NPU Medical Necessity Statement*: Inpatient hospitalization is medically necessary and the clinically appropriate intervention at this time. We will monitor medications and make changes as indicated. Likely length of stay is 10-12 days. Coding Level of Care Code Acute Code for [facility] Fwd Diagnoses Aggressive behavior R46.89 Psychosis F29 Involuntary commitment Z04.6
--- NOTE | 2023-01-07 19:23 | PC.NURSE ---
Pt showered this shift at 1900. Encouraged pt to lotion skin when exiting the shower for his dry skin.
[2023-01-07 20:55] VITALS: BP 104/71; PULSE 101; RESP 17; TEMP 36.2; O2SAT 94
[2023-01-07] MEDS: CLONazepam 1 mg Tablet 1.5 MG PO (22:25)
[2023-01-07] MEDS: amitriptyline 25 mg Tablet PO (22:26)
[2023-01-07] MEDS: trazodone 50 mg Tablet PO (22:26)
[2023-01-07] MEDS: hyDROXYzine 25 mg Capsule 50 MG PO (22:27)
[2023-01-07] MEDS: nicotine 4 mg lozenge MUCOUS MEM (22:27)
[2023-01-07] MEDS: haloperidol 5 mg Tablet PO (22:27)
[2023-01-08] MEDS: cetylpyridinium Lozenge 1 EACH MUCOUS MEM ×2 (04:30→11:17)
[2023-01-08 06:00] VITALS: BP 117/82; PULSE 109; RESP 16; O2SAT 96
[2023-01-08] MEDS: nicotine 21 mg Patch 1 PATCH TRANSDERMA (08:29)
[2023-01-08] MEDS: naltrexone hcl 50 mg Tablet PO (08:30)
[2023-01-08] MEDS: paliperidone ER 3 mg Tablet 9 MG PO (08:30)
[2023-01-08] MEDS: PARoxetine 20 mg Tablet 50 MG PO (08:30)
--- NOTE | 2023-01-08 09:44 | PC.NURSE ---
Patient gave me his rolled up nicotine patch at 0939. He stated that he wanted to try a nicotine lozenge instead. We informed the patient that he will need to wait two hours until he can have the lozenge. Nurse took patient to the side and asked him why he removed the patch. Patient stated in a whisper that he didn't think it was a real nicotine patch. Nurse encouraged him to draw a picture. Patient got a pen and a snack and drink and went to the day room.
--- NOTE | 2023-01-08 13:48 | P.NPUPN_ITS ---
Subjective NPU Subjective: Patient is a 28-iqzb-det-year-old male admitted with psychotic symptoms and continued decompensation after being in hospitalized for inpatient substance abuse rehabilitation. Some unusual behavior on the milieu as he was counting in his room while communicating with the staff writer. He had minimized having any thoughts to hurt himself or others. He continued to struggle with elaborating regarding his previous treatment. He had continued to appear to spend excessive amounts of time in the bathroom likely washing his hands. Despite this, the patient had reported that his thoughts were clear. He reported being less distracted by his thoughts. He had reported having a good visit a few days ago with family. Mental Status Exam MSE Comments: This is a slender white male in hospital scrubs,improved hygiene with fleeting eye contact. No abnormal involuntary motor movements appreciated. He was cooperative with exam but remained in mild to moderate significant distress. No compulsions were noted. There was no clear evidence of obsessional thinking. Speech was more productive today with normal volume and normal prosody. Mood was endorsed as better. His affect remained blunted. Th ought process appeared more linear today. Thought content: patient denies suicidal or homicidal ideation, the patient showed some evidence of paranoia. There was the continued presence of thought blocking. Attention and concentration are intact and memory appeared reliable but none were formally tested. Insight and judgment are limited. Impulse control is impaired. Vitals/I&O/Wt Last Vital Signs Temp 97.2 F L 01/07/23 20:55 Pulse 109 H 01/08/23 06:00 Resp 16 01/08/23 06:00 BP 117/82 01/08/23 06:00 Pulse Ox 96 01/08/23 06:00 O2 Del Method 01/06/23 06:00 O2 Flow Rate 0 01/08/23 08:00 01/07/23 01/08/23 01/08/23 22:59 06:59 14:59 Intake Total 500 / 500 Balance 500 / 500 Weight last 48 hrs Weight 76.113 kg Weight 73.709 kg Data NPU 12/21/22 09:43 12/21/22 09:43 A&P Assessment and plan (1) Aggressive behavior: (2) Psychosis: (3) Involuntary commitment: Plan This is a 37 year old white man with a history of trauma, symtoms of anxiety and depression, methamphetamine and opiate use and genetic loading for mental health and addiction issues who presents with recent confused thought process reporting psychosis/hallucinations/paranoia. 1. Continue Invega 9mg daily, continue paxil at 50mg at night. Continue klonopin 1.5mg at night. Invega 234mg to be ordered once abilify discontinued. 2. Encourage individual, group and milieu therapy 3. Continue q-15 minute check for safety 4. Recommend sober living treatment at the highest level of care to which the patient is willing to commit. 5. 21-day hold hearing attended and he has been placed on an extended hold. Involuntary Hold Information 96 Hour Hold: 96 Hour Involuntary Admission: Yes 96 Hour Hold Ending Date: 12/27/22 96 Hour Hold Ending Time: 08:30 Attestations NPU Medical Necessity Statement*: Inpatient hospitalization is medically necessary and the clinically appropriate intervention at this time. We will monitor medications and make changes as indicated. Likely length of stay is 10-12 days. Coding Level of Care Code Acute Code for [facility] Fwd Diagnoses Aggressive behavior R46.89 Psychosis F29 Involuntary commitment Z04.6
[2023-01-08 14:00] VITALS: BP 122/85; PULSE 99; RESP 16; O2SAT 99
[2023-01-08] MEDS: nicotine 4 mg lozenge MUCOUS MEM (19:40)
[2023-01-08 19:51] VITALS: BP 122/84; PULSE 106; RESP 18; O2SAT 94
[2023-01-08] MEDS: CLONazepam 1 mg Tablet 1.5 MG PO (20:51)
[2023-01-08] MEDS: acetaminophen 325 mg Tablet 650 MG PO (20:52)
--- NOTE | 2023-01-09 01:27 | PC.NURSE ---
no issues reported or noted, pt med compliant and has been sleeping.
[2023-01-09] MEDS: acetaminophen 325 mg Tablet 650 MG PO ×2 (03:23→12:14)
[2023-01-09] MEDS: hyDROXYzine 25 mg Capsule 50 MG PO (03:23)
--- NOTE | 2023-01-09 03:27 | PC.NURSE ---
PRN Tylenol pain 4/10 given and Vistaril- pt anxious, pacing in [place] ,
--- NOTE | 2023-01-09 05:27 | PC.NURSE ---
pt wakes up periodically throughout the night, appears confused, when nurse asks if he needs anything, pt has delayed response, usually will make needs known, other times will just stare and nurse will redirect to try to sleep longer, pt is redirectable and returns to his room.
[2023-01-09 06:00] VITALS: BP 137/101; PULSE 97; RESP 18; O2SAT 97
[2023-01-09] MEDS: PARoxetine 20 mg Tablet 50 MG PO (08:26)
[2023-01-09] MEDS: naltrexone hcl 50 mg Tablet PO (08:26)
[2023-01-09] MEDS: cetylpyridinium Lozenge 1 EACH MUCOUS MEM (08:26)
[2023-01-09] MEDS: paliperidone ER 3 mg Tablet 9 MG PO (08:26)
[2023-01-09] MEDS: nicotine 4 mg lozenge MUCOUS MEM (10:09)
[2023-01-09 14:00] VITALS: BP 148/114; PULSE 106; RESP 17; O2SAT 98
[2023-01-09] MEDS: nicotine 2 mg Gum BUCCAL (15:56)
--- NOTE | 2023-01-09 16:43 | W.PM.NPUPNS ---
Subjective NPU Subjective: Patient is a 51-vhig-onn-year-old male admitted with psychotic symptoms and continued decompensation after being in hospitalized for inpatient substance abuse rehabilitation. The patient had reported that he had not felt that he wanted to return back to [facility] but would not specify why. He had continued to isolate himself on the milieu although he had appeared briefly yet in the day room. He had engaged in basic personal hygiene. He continued to appear to spend inordinate amount of time in the bathroom. He had reported that his thoughts had been clear. Despite this, he appeared to have brief periods of time where he would appear to be engaged in self conversation without there being any goal while whispering to himself per staff. Mental Status Exam MSE Comments: This is a slender white male in hospital scrubs,improved hygiene with fleeting eye contact. No abnormal involuntary motor movements appreciated. He was cooperative with exam but remained in mild to moderate significant distress. No compulsions were noted. There was no clear evidence of obsessional thinking. Speech was more spontaneous and more productive with normal volume and normal prosody. Mood was endorsed as okay. His affect remained blunted and mood incongruent. Thought process appeared more linear today. Thought content: patient denies suicidal or homicidal ideation, the patient showed some evidence of paranoia. There was the continued presence of thought blocking. Attention and concentration are intact and memory appeared reliable but none were formally tested. Insight and judgment are limited. Impulse control is impaired. Vitals/I&O/Wt Last Vital Signs Temp 97.2 F L 01/07/23 20:55 Pulse 97 01/09/23 06:00 Resp 18 01/09/23 06:00 BP 137/101 01/09/23 06:00 Pulse Ox 97 01/09/23 06:00 O2 Del Method 01/06/23 06:00 O2 Flow Rate 0 01/09/23 08:00 Data NPU 12/21/22 09:43 12/21/22 09:43 A&P Assessment and plan (1) Aggressive behavior: (2) Psychosis: (3) Involuntary commitment: Plan This is a 37 year old white man with a history of trauma, symtoms of anxiety and depression, methamphetamine and opiate use and genetic loading for mental health and addiction issues who presents with recent confused thought process reporting psychosis/hallucinations/paranoia. 1. Continue Invega 9mg daily, continue paxil at 50mg at night. Continue klonopin 1.5mg at night. Invega 234mg to be ordered once abilify discontinued. 2. Encourage individual, group and milieu therapy 3. Continue q-15 minute check for safety 4. Recommend sober living treatment at the highest level of care to which the patient is willing to commit. 5. 21-day hold hearing attended and he has been placed on an extended hold. Involuntary Hold Information 96 Hour Hold: 96 Hour Involuntary Admission: Yes 96 Hour Hold Ending Date: 12/27/22 96 Hour Hold Ending Time: 08:30 Attestations NPU Medical Necessity Statement*: Inpatient hospitalization is medically necessary and the clinically appropriate intervention at this time. We will monitor medications and make changes as indicated. Likely length of stay is 5-7 days. Coding Level of Care Code Acute Code for Chg Fwd Diagnoses Aggressive behavior R46.89 Psychosis F29 Involuntary commitment Z04.6
[2023-01-09 20:02] VITALS: BP 140/81; PULSE 110; RESP 18; TEMP 36.3; O2SAT 95
[2023-01-09] MEDS: CLONazepam 1 mg Tablet 1.5 MG PO (20:27)
[2023-01-10] MEDS: nicotine 2 mg Gum BUCCAL ×2 (02:03→14:26)
[2023-01-10] MEDS: OLANZapine 5 mg ODT PO (02:39)
--- NOTE | 2023-01-10 02:44 | PC.NURSE ---
pt pacing laurent, arthur ramirez given per MD orders
[2023-01-10] MEDS: paliperidone ER 3 mg Tablet 9 MG PO (08:12)
[2023-01-10] MEDS: PARoxetine 20 mg Tablet 50 MG PO (08:12)
[2023-01-10] MEDS: docusate sodium 100 mg Capsule PO (08:13)
[2023-01-10] MEDS: naltrexone hcl 50 mg Tablet PO (08:13)
[2023-01-10] MEDS: paliperidone palmitate 234 mg Syringe IM (11:32)
[2023-01-10 13:22] VITALS: BP 122/82; PULSE 102; RESP 18; TEMP 36.8; O2SAT 96
--- NOTE | 2023-01-10 18:13 | P.NPUPN_ITS ---
Subjective NPU Subjective: Patient is a 78-slbn-voy-year-old male admitted with psychotic symptoms and continued decompensation after being in hospitalized for inpatient substance abuse rehabilitation. Patient had reported receiving his Invega shot today. He had appeared more isolated and stated that he had been feeling more frustrated. He states that he had been feeling better but reported that when talking to his parents they had expressed that he may need to go back to [place]. He states that he had been thinking better and should be given a chance to simply return home. He had stated that his parents had deflected this conversation and were discussing that he no longer had Internet at home. He had reported that he had been concentrating better. The patient had continued to have periods where he had been whispering quietly to himself and required prompting to answer some questions. Patient had appeared to have adequate sleep. He reported no sleep continuity disruption despite the reduction in amitriptyline. He had continued to engage in some compulsive handwashing although he minimized having any kind of obsessional thoughts and minimized engaging in compulsions. Mental Status Exam MSE Comments: This is a slender white male in hospital scrubs,improved hygiene with fleeting eye contact. No abnormal involuntary motor movements appreciated. His hands continued to appear red as if they had been washed and rubbed repeatedly. He was cooperative with exam but remained in mild to moderate significant distress. No compulsions were noted. There was no clear evidence of obsessional thinking. Speech was more spontaneous and more productive with normal volume and normal prosody. Mood was endorsed as okay. His affect remained blunted and mood incongruent. Thought process appeared linear today. Thought content: patient denies suicidal or homicidal ideation, the patient showed some evidence of paranoia. There was the continued presence of thought blocking. Attention and concentration are intact and memory appeared reliable but none were formally tested. Insight and judgment are limited. Impulse control is impaired. Vitals/I&O/Wt Last Vital Signs Temp 98.2 F 01/10/23 13:22 Pulse 102 H 01/10/23 13:22 Resp 18 01/10/23 13:22 BP 122/82 01/10/23 13:22 Pulse Ox 96 01/10/23 13:22 O2 Del Method 01/06/23 06:00 O2 Flow Rate 0 01/09/23 20:00 Data NPU 12/21/22 09:43 12/21/22 09:43 A&P Assessment and plan (1) Aggressive behavior: (2) Psychosis: (3) Involuntary commitment: Plan This is a 37 year old white man with a history of trauma, symtoms of anxiety and depression, methamphetamine and opiate use and genetic loading for mental health and addiction issues who presents with recent confused thought process reporting psychosis/hallucinations/paranoia. 1. Will begin reduction in invega oral to 6mg daily. continue paxil at 50mg at night. Continue klonopin 1.5mg at night. Invega 234mg to be ordered once abilify discontinued. 2. Encourage individual, group and milieu therapy 3. Continue q-15 minute check for safety 4. Recommend sober living treatment at the highest level of care to which the patient is willing to commit. 5. 21-day hold hearing attended and he has been placed on an extended hold. Involuntary Hold Information 96 Hour Hold: 96 Hour Involuntary Admission: Yes 96 Hour Hold Ending Date: 12/27/22 96 Hour Hold Ending Time: 08:30 Attestations NPU Medical Necessity Statement*: Inpatient hospitalization is medically necessary and the clinically appropriate intervention at this time. We will monitor me dications and make changes as indicated. Likely length of stay is 5-7 days. Coding Level of Care Code Acute Code for [facility] Diagnoses Aggressive behavior R46.89 Psychosis F29 Involuntary commitment Z04.6
[2023-01-10 21:27] VITALS: BP 112/82; PULSE 116; RESP 18; TEMP 36.8; O2SAT 92
[2023-01-10] MEDS: trazodone 50 mg Tablet PO (21:30)
[2023-01-10] MEDS: CLONazepam 1 mg Tablet 1.5 MG PO (21:30)
--- NOTE | 2023-01-10 21:30 | PC.NURSE ---
Patient given trazodone to promote rest. Patient returned to room to lay down.
--- NOTE | 2023-01-11 05:02 | PC.NURSE ---
Patient has rested quietly during night. No signs of distress present.
[2023-01-11 06:00] VITALS: BP 116/69; PULSE 118; RESP 17; TEMP 37; O2SAT 95
[2023-01-11] MEDS: nicotine 4 mg lozenge MUCOUS MEM (06:31)
[2023-01-11] MEDS: paliperidone ER 3 mg Tablet 9 MG PO (08:42)
[2023-01-11] MEDS: naltrexone hcl 50 mg Tablet PO (08:43)
[2023-01-11] MEDS: PARoxetine 20 mg Tablet 50 MG PO (08:43)
[2023-01-11] MEDS: nicotine 21 mg Patch 1 PATCH TRANSDERMA (08:48)
[2023-01-11 14:00] VITALS: BP 110/78; PULSE 103; RESP 20; TEMP 36.6; O2SAT 95
[2023-01-11] MEDS: acetaminophen 325 mg Tablet 650 MG PO ×2 (14:18→21:16)
[2023-01-11] MEDS: docusate sodium 100 mg Capsule PO (14:19)
[2023-01-11] MEDS: hyDROXYzine 25 mg Capsule 50 MG PO (14:19)
--- NOTE | 2023-01-11 18:45 | PC.NURSE ---
This nurse gave permission to the pt to throw away a empty toilet paper roll that the pt had been holding in his hand for at least 30 minutes.
--- NOTE | 2023-01-11 19:06 | P.NPUPN_ITS ---
Subjective NPU Subjective: Patient is a 76-kfbj-gap-year-old male admitted with psychotic symptoms and continued decompensation after being in hospitalized for inpatient substance abuse rehabilitation. Patient had reported receiving his Invega shot yesterday. He continued to show a evidence of more appropriate behavior on the unit with less compulsive behavior despite washing his hands for a longer period of time today. He had reported no side effects from his medication. He had expressed desire to return home and complete outpatient treatment instead of going inpatient. He had reported that his parents had not been supportive of this decision. He had reported adequate sleep. Staff notes the patient was r edirectable and was engaged in more group. Mental Status Exam MSE Comments: This is a slender white male in hospital scrubs,improved hygiene with fleeting eye contact. No abnormal involuntary motor movements appreciated. His hands continued to appear red as if they had been washed and rubbed repeatedly. He was cooperative with exam and appeared in less acute distress today. No compulsions were noted. There was no clear evidence of obsessional thinking. Speech was more spontaneous and more productive with normal volume and normal prosody. Mood was endorsed as good. His affect remained blunted and mood incongruent. Thought process appeared more linear today. Thought content: patient denies suicidal or homicidal ideation, there still appeared to be some underlying paranoia and he remained slightly guarded when asked specific questions about his past. There was the continued presence of thought blocking and at times he did appear to be responding to internal stimuli as he would wh isper to himself. Attention and concentration are intact and memory appeared reliable but none were formally tested. Insight and judgment are limited. Impulse control is impaired. Vitals/I&O/Wt Last Vital Signs Temp 97.8 F 01/11/23 14:00 Pulse 103 H 01/11/23 14:00 Resp 20 H 01/11/23 14:00 BP 110/78 01/11/23 14:00 Pulse Ox 95 01/11/23 14:00 O2 Del Method 01/11/23 14:00 O2 Flow Rate 0 01/10/23 20:00 01/11/23 01/11/23 01/11/23 06:59 14:59 22:59 Intake Total 500 / 500 Balance 500 / 500 Data NPU 12/21/22 09:43 12/21/22 09:43 A&P Assessment and plan (1) Aggressive behavior: (2) Psychosis: (3) Involuntary commitment: Plan This is a 37 year old white man with a history of trauma, symtoms of anxiety and depression, methamphetamine and opiate use and genetic loading for mental health and addiction issues who presents with recent confused thought process reporting psychosis/hallucinations/paranoia. 1. Will begin reduction in invega oral to 6mg daily. continue paxil at 50mg at night. Continue klonopin 1.5mg at night. Invega 234mg to be ordered once abilify discontinued. 2. Encourage individual, group and milieu therapy 3. Continue q-15 minute check for safety 4. Recommend sober living treatment at the highest level of care to which the patient is willing to commit. 5. 21-day hold hearing attended and he has been placed on an extended hold. Involuntary Hold Information 96 Hour Hold: 96 Hour Involuntary Admission: Yes 96 Hour Hold Ending Date: 12/27/22 96 Hour Hold Ending Time: 08:30 Attestations NPU Medical Necessity Statement*: Inpatient hospitalization is medically necessary and the clinically appropriate intervention at this time. We will monitor medications and make changes as indicated. Likely length of stay is 7-9 days. Coding Level of Care Code Acute Code for [facility] Diagnoses Aggressive behavior R46.89 Psychosis F29 Involuntary commitment Z04.6
--- NOTE | 2023-01-11 21:15 | PC.NURSE ---
Patient requesting prn for sleep. Trazodone given as ordered. Encouraged patient to return to room and try to relax in bed. Patient did return to room.
[2023-01-11] MEDS: CLONazepam 1 mg Tablet 1.5 MG PO (21:16)
[2023-01-11] MEDS: trazodone 50 mg Tablet PO (21:17)
[2023-01-11] MEDS: nicotine 2 mg Gum BUCCAL (21:24)
[2023-01-11 21:27] VITALS: BP 122/85; PULSE 113; RESP 16; TEMP 36.8; O2SAT 95
--- NOTE | 2023-01-12 04:00 | PC.NURSE ---
Patient has rested quietly during night. No signs of distress present.
[2023-01-12 06:00] VITALS: BP 112/75; PULSE 111; RESP 16; TEMP 37; O2SAT 96
[2023-01-12] MEDS: cetylpyridinium Lozenge 1 EACH MUCOUS MEM (06:35)
[2023-01-12] MEDS: PARoxetine 20 mg Tablet 50 MG PO (08:47)
[2023-01-12] MEDS: naltrexone hcl 50 mg Tablet PO (08:48)
[2023-01-12] MEDS: paliperidone ER 3 mg Tablet 6 MG PO (08:48)
[2023-01-12] MEDS: OLANZapine 5 mg ODT PO ×2 (10:03→23:13)
[2023-01-12] MEDS: nicotine 21 mg Patch 1 PATCH TRANSDERMA (10:23)
--- NOTE | 2023-01-12 12:47 | P.NPUPN_ITS ---
Subjective NPU Subjective: Patient presented today reporting that he thinks he is doing better on the Invega. Reporting that he feels more calm and denying any perceptual disturbances. Staff reports of decrease and any erratic behavior and seeming to tolerate the change in medication. Mental Status Exam MSE Comments: This is a slender white male in hospital scrubs,improved hygiene with fleeting eye contact. No abnormal involuntary motor movements appreciated. Continued psychomotor retardation. His hands continued to appear red as if they had been washed and rubbed repeatedly. He was cooperative with exam and appea red in less acute distress today. No compulsions were noted. There was no clear evidence of obsessional thinking. Speech was more spontaneous and more productive with normal rate and volume and normal prosody. Mood was endorsed as a/less nervous. His affect remained blunted. Thought process appeared more linear today. Thought content: patient denies suicidal or homicidal ideation, there still appeared to be some underlying paranoia and he remained slightly guarded when asked specific questions about his past. There was the continued presence of thought blocking, but less than previous contact with this publicity writer. Attention and concentration are intact and memory appeared reliable but none were formally tested. Insight and judgment are limited. Impulse control is impaired. Vitals/I&O/Wt Last Vital Signs Temp 98.6 F 01/12/23 06:00 Pulse 111 H 01/12/23 06:00 Resp 16 01/12/23 06:00 BP 112/75 01/12/23 06:00 Pulse Ox 96 01/12/23 06:00 O2 Del Method 01/12/23 06:00 O2 Flow Rate 0 01/12/23 08:00 01/11/23 01/12/23 01/12/23 22:59 06:59 14:59 Intake Total 500 / 500 Balance 500 / 500 Data NPU 12/21/22 09:43 12/21/22 09:43 A&P Assessment and plan (1) Aggressive behavior: (2) Psychosis: (3) Involuntary commitment: Plan This is a 37 year old white man with a history of trauma, symtoms of anxiety and depression, methamphetamine and opiate use and genetic loading for mental health and addiction issues who presents with recent confused thought process reporting psychosis/hallucinations/paranoia. 1. Will begin reduction in invega oral to 6mg daily. continue paxil at 50mg at night. Continue klonopin 1.5mg at night. Invega Sustenna 234mg IM 01/10/2023. 2. Encourage individual, group and milieu therapy 3. Continue q-15 minute check for safety 4. Recommend sober living treatment at the highest level of care to which the patient is willing to commit. 5. 21-day hold hearing attended and he has been placed on an extended hold. Involuntary Hold Information 96 Hour Hold: 96 Hour Involuntary Admission: Yes 96 Hour Hold Ending Date: 12/27/22 96 Hour Hold Ending Time: 08:30 Attestations NPU Medical Necessity Statement*: Inpatient hospitalization is medically necessary and the clinically appropriate intervention at this time. We will monitor medications and make changes as indicated. Likely length of stay is 7-9 days. Coding Level of Care Code Acute Code for [facility] Diagnoses Aggressive behavior R46.89 Psychosis F29 Involuntary commitment Z04.6
--- NOTE | 2023-01-12 13:39 | PC.NURSE ---
Pt requesting his toiletries and threw away his comb because it was old. Wouldn't accept the toothbrush provided because he didn't see the package opened. New supplies provided and opened in front of pt. Pt informed he needed to keep his supplies and use them repeatedly as he was the only one using them and these items were reusable. Pt verbalized his understanding.
[2023-01-12 14:00] VITALS: BP 112/73; PULSE 95; RESP 18; TEMP 36.6; O2SAT 94
[2023-01-12] MEDS: hyDROXYzine 25 mg Capsule 50 MG PO ×2 (16:29→23:12)
[2023-01-12] MEDS: nicotine 4 mg lozenge MUCOUS MEM (18:43)
[2023-01-12] MEDS: CLONazepam 1 mg Tablet 1.5 MG PO (21:46)
[2023-01-12 22:00] VITALS: BP 112/75; PULSE 103; RESP 18; O2SAT 97
[2023-01-12] MEDS: trazodone 50 mg Tablet PO (23:13)
[2023-01-13] MEDS: PARoxetine 20 mg Tablet 50 MG PO (08:39)
[2023-01-13] MEDS: naltrexone hcl 50 mg Tablet PO (08:39)
[2023-01-13] MEDS: paliperidone ER 3 mg Tablet 6 MG PO (08:40)
[2023-01-13] MEDS: docusate sodium 100 mg Capsule PO (08:40)
[2023-01-13] MEDS: nicotine 21 mg Patch 1 PATCH TRANSDERMA (08:45)
--- NOTE | 2023-01-13 12:39 | P.NPUPN_ITS ---
Subjective NPU Subjective: Patient presented today reporting that he is feeling a little better. He continues to endorse this improvement but continues to have some compulsive behavior with handwashing and other grooming related activities. He continues to show improvement over presentation per patient and staff. We discussed starting to identify where he is related to baseline and will work with that with family. Mental Status Exam MSE Comments: This is a slender white male in hospital scrubs,improved hygiene with fleeting eye contact. No abnormal involuntary motor movements appreciated. Continued psychomotor retardation. His hands continued to appear red as if they had been washed and rubbed repeatedly. He was cooperative with exam and appeared in less acute distress today. No compulsions were noted. There was no clear evidence of obsessional thinking. Speech was more spontaneous and more productive with normal rate and volume greater but still reduced prosody. Mood was endorsed as anxious but less so. His affect remained blunted. Thought process appeared more linear today. Thought content: patient denies suicidal or homicidal ideation, there still appeared to be some underlying paranoia and he remained slightly guarded when asked specific questions about his past. There was the continued presence of thought blocking, but less than previous contact with this bond underwriter. Attention and concentration are intact and memory appeared reliable but none were formally tested. Insight and judgment are limited. Impulse control is impaired. Vitals/I&O/Wt Last Vital Signs Temp 97.9 F 01/12/23 14:00 Pulse 103 H 01/12/23 22:00 Resp 18 01/12/23 22:00 BP 112/75 01/12/23 22:00 Pulse Ox 97 01/12/23 22:00 O2 Del Method 01/12/23 22:00 O2 Flow Rate 0 01/12/23 20:00 Data NPU 12/21/22 09:43 12/21/22 09:43 A&P Assessment and plan (1) Aggressive behavior: (2) Psychosis: (3) Involuntary commitment: Plan This is a 37 year old white man with a history of trauma, symtoms of anxiety and depression, methamphetamine and opiate use and genetic loading for mental health and addiction issues who presents with recent confused thought process reporting psychosis/hallucinations/paranoia. 1. Will begin reduction in invega oral to 6mg daily. continue paxil at 50mg at night. Continue klonopin 1.5mg at night. Invega Sustenna 234mg IM 01/10/2023. 2. Encourage individual, group and milieu therapy 3. Continue q-15 minute check for safety 4. Recommend sober living treatment at the highest level of care to which the patient is willing to commit. 5. 21-day hold hearing attended and he has been placed on an extended hold. Involuntary Hold Information 96 Hour Hold: 96 Hour Involuntary Admission: Yes 96 Hour Hold Ending Date: 12/27/22 96 Hour Hold Ending Time: 08:30 Attestations NPU Medical Necessity Statement*: Inpatient hospitalization is medically necessary and the clinically appropriate intervention at this time. We will monitor medications and make changes as indicated. Likely length of stay is 7-9 days. Coding Level of Care Code Acute Code for [facility] Diagnoses Aggressive behavior R46.89 Psychosis F29 Involuntary commitment Z04.6
[2023-01-13] MEDS: nicotine 4 mg lozenge MUCOUS MEM ×3 (13:39→21:03)
[2023-01-13 14:00] VITALS: BP 106/79; PULSE 103; RESP 16; TEMP 36.3; O2SAT 96
[2023-01-13 20:02] VITALS: BP 112/75; PULSE 105; RESP 18; TEMP 36.6; O2SAT 94
[2023-01-13] MEDS: OLANZapine 5 mg ODT PO (21:02)
[2023-01-13] MEDS: hyDROXYzine 25 mg Capsule 50 MG PO (21:02)
[2023-01-13] MEDS: trazodone 50 mg Tablet PO (21:03)
[2023-01-14] MEDS: PARoxetine 20 mg Tablet 50 MG PO (08:05)
[2023-01-14] MEDS: paliperidone ER 3 mg Tablet 6 MG PO (08:05)
[2023-01-14] MEDS: acetaminophen 325 mg Tablet 650 MG PO (08:06)
[2023-01-14] MEDS: docusate sodium 100 mg Capsule PO (08:06)
[2023-01-14] MEDS: naltrexone hcl 50 mg Tablet PO (08:06)
[2023-01-14] MEDS: nicotine 21 mg Patch 1 PATCH TRANSDERMA (08:28)
[2023-01-14] MEDS: OLANZapine 5 mg ODT PO (09:09)
--- NOTE | 2023-01-14 09:09 | PC.NURSE ---
Pt continues to perseverate on his long sleeved shirt and now he's fixated on his toothbrush, claiming at first it isn't his and then he said it wasn't sterile so he couldn't use it. Pt redirected, but continues to perseverate on it; then said he dropped his toothbrush so he needed a new one. Pt was offered a washcloth to use instead. He declined. Pt commented the toothbrushes were disposable. Pt was redirected. Medicated with zyprexa.
[2023-01-14] MEDS: ziprasidone hcl 40 mg Capsule PO (12:30)
[2023-01-14 14:00] VITALS: BP 108/74; PULSE 86; RESP 18; TEMP 36.6; O2SAT 98
--- NOTE | 2023-01-14 15:19 | W.PM.NPUPNS ---
Subjective NPU Subjective: Patient presented today reporting a plan to go home. He reports that he feels he has been here long enough and that he is ready to go. We discussed him being on a hold which did not seem to ring true to him and we ultimately needed to give him printouts of his paperwork as proved. He endorses a plan to return home with his parents and we discussed working with the treatment team tomorrow to see where his parents feel he is and if that is a realistic discharge plan. We continue to discuss the possibility of increasing the SSRI for OCD management. Mental Status Exam MSE Comments: This is a slender white male in hospital scrubs,improved hygiene with fleeting eye contact. No abnormal involuntary motor movements appreciated. Continued psychomotor retardation. His hands continued to appear red as if they had been washed and rubbed repeatedly. He was cooperative with exam and appeared in less acute distress today. No compulsions were noted, but has had continued excess handwashing. There was no clear evidence of obsessional thinking. Speech was more spontaneous and more productive with normal rate and volume greater but still reduced prosody. Mood was endorsed as anxious but less so. His affect remained blunted. Thought process appeared more linear today. Thought content: patient denies suicidal or homicidal ideation, there still appeared to be some underlying paranoia and he remained slightly guarded when asked specific questions about his past. There was the continued presence of thought blocking, but less than previous contact with this bond writer. Attention and concentration are intact and memory appeared reliable but none were formally tested. Insight and judgment are limited. Impulse control is impaired. Vitals/I&O/Wt Last Vital Signs Temp 97.8 F 01/14/23 14:00 Pulse 86 01/14/23 14:00 Resp 18 01/14/23 14:00 BP 108/74 01/14/23 14:00 Pulse Ox 98 01/14/23 14:00 O2 Del Method 01/13/23 14:00 O2 Flow Rate 0 01/14/23 20:00 Weight last 48 hrs Weight 77.111 kg Data NPU 12/21/22 09:43 12/21/22 09:43 A&P Assessment and plan (1) Aggressive behavior: (2) Psychosis: (3) Involuntary commitment: Plan This is a 37 year old white man with a history of trauma, symtoms of anxiety and depression, methamphetamine and opiate use and genetic loading for mental health and addiction issues who presents with recent confused thought process reporting psychosis/hallucinations/paranoia. 1. Will begin reduction in invega oral to 6mg daily. continue paxil at 50mg at night. Continue klonopin 1.5mg at night. Invega Sustenna 234mg IM 01/10/2023. May consider increase in Paxil for OCD compulsions. 2. Encourage individual, group and milieu therapy 3. Continue q-15 minute check for safety 4. Recommend sober living treatment at the highest level of care to which the patient is willing to commit. 5. 21-day hold hearing attended and he has been placed on an extended hold. Involuntary Hold Information 96 Hour Hold: 96 Hour Involuntary Admission: Yes 96 Hour Hold Ending Date: 12/27/22 96 Hour Hold Ending Time: 08:30 Attestations NPU Medical Necessity Statement*: Inpatient hospitalization is medically necessary and the clinically appropriate intervention at this time. We will monitor medications and make changes as indicated. Likely length of stay is 6-8 days. Coding Level of Care Code Acute Code for [facility] Diagnoses Aggressive behavior R46.89 Psychosis F29 Involuntary commitment Z04.6
[2023-01-14 21:54] VITALS: RESP 18
[2023-01-15] MEDS: nicotine 4 mg lozenge MUCOUS MEM ×3 (05:43→13:46)
[2023-01-15 06:00] VITALS: BP 103/74; PULSE 92; RESP 18; O2SAT 96
[2023-01-15] MEDS: naltrexone hcl 50 mg Tablet PO (08:39)
[2023-01-15] MEDS: paliperidone ER 3 mg Tablet 6 MG PO (08:39)
[2023-01-15] MEDS: PARoxetine 20 mg Tablet 50 MG PO (08:40)
[2023-01-15 14:00] VITALS: BP 125/79; PULSE 108; RESP 18; TEMP 36.6; O2SAT 94
--- NOTE | 2023-01-15 17:01 | P.NPUPN_ITS ---
Subjective NPU Subjective: Patient presented today denying any new issues. He continues to be focused on hopefully going home sooner rather than later. We discussed getting his parents opinion about where he is compared to what they are accustomed to. We discussed the risk benefits and alternatives of increasing his Paxil and he understood and agreed to proceed as is documented in this note. Mental Status Exam MSE Comments: This is a slender white male in hospital scrubs,improved hygiene with fleeting eye contact. No abnormal involuntary motor movements appreciated. Continued psychomotor retardation. His hands continued to appear red as if they had been washed and rubbed repeatedly. He was cooperative with exam and appeared in less acute distress today. No compulsions were noted, but has had continued excess handwashing. There was no clear evidence of obsessional thinking. Speech was more spontaneous and more productive with normal rate and volume greater but still reduced prosody. Mood was endorsed as anxious but less so. His affect remained blunted. Thought process appeared more linear today. Thought content: patient denies suicidal or homicidal ideation, there still appeared to be some underlying paranoia and he remained slightly guarded when asked specific questions about his past. There was the continued presence of thought blocking, but less than previous contact with this check writer salesperson. Attention and concentration are intact and memory appeared reliable but none were formally tested. Insight and judgment are limited. Impulse control is impaired. Vitals/I&O/Wt Last Vital Signs Temp 97.8 F 01/15/23 14:00 Pulse 108 H 01/15/23 14:00 Resp 18 01/15/23 14:00 BP 125/79 01/15/23 14:00 Pulse Ox 94 01/15/23 14:00 O2 Del Method 01/13/23 14:00 O2 Flow Rate 0 01/15/23 20:00 Data NPU 12/21/22 09:43 12/21/22 09:43 A&P Assessment and plan (1) Aggressive behavior: (2) Psychosis: (3) Involuntary commitment: Plan This is a 37 year old white man with a history of trauma, symtoms of anxiety and depression, methamphetamine and opiate use and genetic loading for mental health and addiction issues who presents with recent confused thought process reporting psychosis/hallucinations/paranoia. 1. Will begin reduction in invega oral to 6mg daily. continue paxil at 50mg at night. Continue klonopin 1.5mg at night. Invega Sustenna 234mg IM 01/10/2023. Increase Paxil to 60 mg p.o. daily OCD compulsions. 2. Encourage individual, group and milieu therapy 3. Continue q-15 minute check for safety 4. Recommend sober living treatment at the highest level of care to which the patient is willing to commit. 5. 21-day hold hearing attended and he has been placed on an extended hold. 6. Talk to parents about where things are compared to baseline. Involuntary Hold Information 96 Hour Hold: 96 Hour Involuntary Admission: Yes 96 Hour Hold Ending Date: 12/27/22 96 Hour Hold Ending Time: 08:30 Attestations NPU Medical Necessity Statement*: Inpatient hospitalization is medically necessary and the clinically appropriate intervention at this time. We will monitor medications and make changes as indicated. Likely length of stay is 5-7 days. Coding Level of Care Code Acute Code for [facility] Diagnoses Aggressive behavior R46.89 Psychosis F29 Involuntary commitment Z04.6
[2023-01-16 06:00] VITALS: BP 121/80; PULSE 103; RESP 19; TEMP 36.9; O2SAT 95
--- NOTE | 2023-01-16 06:38 | PC.NURSE ---
pt slept all night, no distress noted.
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
[2023-01-16] MEDS: nicotine 21 mg Patch 1 PATCH TRANSDERMA (07:34)
[2023-01-16] MEDS: PARoxetine 20 mg Tablet 50 MG PO (08:10)
[2023-01-16] MEDS: docusate sodium 100 mg Capsule PO (08:10)
[2023-01-16] MEDS: naltrexone hcl 50 mg Tablet PO (08:10)
[2023-01-16] MEDS: paliperidone ER 3 mg Tablet 6 MG PO (08:10)
[2023-01-16] MEDS: PARoxetine 20 mg Tablet 10 MG PO (12:19)
[2023-01-16 14:00] VITALS: BP 132/80; PULSE 80; RESP 17; TEMP 36.6; O2SAT 97
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
[2023-01-16] MEDS: trazodone 50 mg Tablet PO (21:06)
[2023-01-16] MEDS: acetaminophen 325 mg Tablet 650 MG PO (21:06)
[2023-01-16 21:16] VITALS: BP 115/79; PULSE 92; RESP 16; TEMP 36.7; O2SAT 95
[2023-01-17 06:00] VITALS: BP 114/71; PULSE 103; RESP 16; O2SAT 96
--- NOTE | 2023-01-17 06:30 | PC.NURSE ---
received Tylenol and Trazodone at bedtime. pt slept all night. no issues reported or noted.
[2023-01-17] MEDS: nicotine 4 mg lozenge MUCOUS MEM (06:55)
[2023-01-17] MEDS: paliperidone ER 3 mg Tablet 6 MG PO (08:45)
[2023-01-17] MEDS: naltrexone hcl 50 mg Tablet PO (08:45)
[2023-01-17] MEDS: PARoxetine 20 mg Tablet 60 MG PO (08:46)
[2023-01-17] MEDS: nicotine 21 mg Patch 1 PATCH TRANSDERMA (08:47)
[2023-01-17] MEDS: paliperidone palmitate 156 mg Syringe IM (09:40)
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
[2023-01-17 10:17] VITALS: BP 114/71; PULSE 103; RESP 16; O2SAT 96
== END 2023-01-17 14:30 | disposition home or self-care (01) | DRG 885 ==
LOC: ER 13:31 → NP 15:27
PROVIDERS: Admitting Provider Psychiatry & Neurology Psychiatry; Emergency Provider Physician Assistant; Visit Provider Psychiatry & Neurology Psychiatry
DX: F29 Unspecified psychosis not due to a substance or known physiological condition (principal); F41.9 Anxiety disorder, unspecified; F32.A Depression, unspecified; F15.90 Other stimulant use, unspecified, uncomplicated; F11.90 Opioid use, unspecified, uncomplicated; F17.210 Nicotine dependence, cigarettes, uncomplicated; Z81.8 Family history of other mental and behavioral disorders; Z81.4 Family history of other substance abuse and dependence
CPT/HCPCS: 36415; 80053; 80306; 80307; 81003; 84443; 85025; 87426; 87804; 93005; 96372; 97150; 97165; 99238; 99285; J1200; J1630; J2060